=== PATIENT | male | born 1980 | race Caucasian/White ===

== ENCOUNTER 2017-11-30 07:42 | Emergency (ER) | payer MEDICAID ==
[~2017-11-30] VITALS: Ht 180.3 cm; Wt 110.0 kg
[~2017-11-30 07:42] MED LIST: ALPR2TAB2 PO; BUPR300T49 PO; MORP30TA81 PO; ZOLP10TA PO
[2017-11-30] MEDS ORDERED: SODIUM CHLORIDE FLUSH 10ML SYR IVF ONE (09:00)
[2017-11-30] MEDS ORDERED: SODIUM CHLORIDE 0.9% 1,000ML IVBOLUS ONE (09:00)
[2017-11-30] MEDS ORDERED: HYDROmorphone 1 MG/ML, 1ML IVPush PRN (09:00)
[2017-11-30] MEDS ORDERED: ONDANSETRON 2MG/ML, 2ML IVPush ONE (09:00)
[2017-11-30] MEDS ORDERED: KETOROLAC 30 MG/1 ML IVPush ONE (09:00)
[2017-11-30 09:12] LABS: BASOPHILS # (AUTO) 0.04 x10^3/uL (0-0.1); BASOPHILS % (AUTO) 1 % (0-1); EOSINOPHILS # (AUTO) 0.15 x10^3/uL (0-0.4); EOSINOPHILS % (AUTO) 2 % (1-7); LYMPHOCYTES # (AUTO) 1.83 x10^3/uL (1-3.4); LYMPHOCYTES % (AUTO) 29 % (22-44); MD NO; MEAN CORPUSCULAR HEMOGLOBIN 30.5 pg (27.5-34.5); MEAN CORPUSCULAR HGB CONC 34.2 g/dL (33.2-36.2); MEAN CORPUSCULAR VOLUME 89.2 fL (81-97); MEAN PLATELET VOLUME 9.4 fL (7.4-10.4); MONOCYTES # (AUTO) 0.45 x10^3/uL (0.2-0.8); MONOCYTES % (AUTO) 7 % (2-9); NEUTROPHILS # (AUTO) 3.95 x10^3/uL (1.8-6.8); NEUTROPHILS % (AUTO) 62 % (42-75); PLATELET COUNT 261 x10^3/uL (130-400); RED BLOOD COUNT 4.72 x10^6/uL (4.38-5.82); RED CELL DISTRIBUTION WIDTH 13.8 % (9.4-14.8)
[2017-11-30 09:20] LABS: ALBUMIN 3.9 g/dL (3.4-5.0); ANION GAP 6 mmol/L (5-15); CALCIUM 8.4 mg/dL (8.5-10.1); CHLORIDE 105 mmol/L (98-107); CREATININE 0.84 mg/dL (0.7-1.3)
[2017-11-30] MEDS ORDERED: ONDANSETRON 2MG/ML, 2ML ONE (09:33)
[2017-11-30] MEDS ORDERED: KETOROLAC 30 MG/1 ML ONE (09:33)
[2017-11-30] MEDS ORDERED: HYDROmorphone 1 MG/ML, 1ML ONE (09:34)
[2017-11-30 09:50] VITALS: BP 116/71
[2017-11-30 10:09] LABS: MICROSCOPIC NOT IND
== END 2017-11-30 11:05 | disposition home or self-care (01) ==
LOC: ED 10:25
DX: J01.11 Acute recurrent frontal sinusitis (principal); J01.01 Acute recurrent maxillary sinusitis
CPT/HCPCS: 36415; 80048; 81003; 82040; 85025; 96361; 96374; 96375; 99284; J1170; J1885; J2405; J7030

== ENCOUNTER 2017-12-24 16:09 | Emergency (ER) | payer MEDICAID ==
[~2017-12-24] VITALS: Ht 180.3 cm; Wt 102.6 kg
[2017-12-24] MEDS ORDERED: ONDANSETRON ODT 4 MG ONE ×2 (17:25→18:23)
[2017-12-24] MEDS ORDERED: ONDANSETRON ODT 4 MG PO ONE ×2 (17:30→18:30)
[2017-12-24 18:04] LABS: BASOPHILS # (AUTO) 0.06 x10^3/uL (0-0.1); BASOPHILS % (AUTO) 1 % (0-1); EOSINOPHILS # (AUTO) 0.14 x10^3/uL (0-0.4); EOSINOPHILS % (AUTO) 2 % (1-7); LYMPHOCYTES # (AUTO) 1.59 x10^3/uL (1-3.4); LYMPHOCYTES % (AUTO) 26 % (22-44); MD NO; MEAN CORPUSCULAR HGB CONC 34.4 g/dL (33.2-36.2); MEAN PLATELET VOLUME 9.7 fL (7.4-10.4); MONOCYTES # (AUTO) 0.47 x10^3/uL (0.2-0.8); MONOCYTES % (AUTO) 8 % (2-9); NEUTROPHILS # (AUTO) 3.85 x10^3/uL (1.8-6.8); NEUTROPHILS % (AUTO) 63 % (42-75); PLATELET COUNT 215 x10^3/uL (130-400); RED BLOOD COUNT 4.61 x10^6/uL (4.38-5.82)
[2017-12-24] MEDS ORDERED: MORP30TA3 PO (18:06)
[2017-12-24 18:15] LABS: ALANINE AMINOTRANSFERASE 42 U/L (12-78); ALBUMIN 3.6 g/dL (3.4-5.0); ANION GAP 5 mmol/L (5-15); CALCIUM 8.2 mg/dL (8.5-10.1); CHLORIDE 108 mmol/L (98-107)
[2017-12-24 18:17] LABS: ALKALINE PHOSPHATASE 90 U/L (45-117); BILIRUBIN,TOTAL 0.8 mg/dL (0.2-1.0); TOTAL PROTEIN 6.7 g/dL (6.4-8.2)
[2017-12-24 18:26] VITALS: BP 117/90
== END 2017-12-24 18:45 | disposition home or self-care (01) ==
LOC: ED 18:05
DX: R51 Headache (principal); R11.10 Vomiting, unspecified; J34.2 Deviated nasal septum; F43.10 Post-traumatic stress disorder, unspecified
CPT/HCPCS: 36415; 70450; 70486; 80053; 85025; 99285; Q0162

== ENCOUNTER 2018-02-12 18:16 | Observation (INO) | payer BC, MEDICAID ==
[~2018-02-12] VITALS: Ht 180.3 cm; Wt 100.3 kg
[~2018-02-12 18:16] MED LIST changes: +MORP30TA3 PO
[2018-02-12] MEDS ORDERED: METHOCARBAMOL 750 MG TABLET ONE (19:23)
[2018-02-12] MEDS ORDERED: KETOROLAC 30 MG/1 ML ONE (19:23)
[2018-02-12] MEDS ORDERED: METHOCARBAMOL 750 MG TABLET PO ONE (19:30)
[2018-02-12] MEDS ORDERED: KETOROLAC 30 MG/1 ML IVPush ONE (19:30)
[2018-02-12] MEDS ORDERED: KETAMINE 100 MG/ML, 5ML IV ONE ×2 (19:30→21:30)
[2018-02-12] MEDS ORDERED: ONDA4TAB10 PO (21:40)
[2018-02-12] MEDS ORDERED: ONDANSETRON 2MG/ML, 2ML IVPush PRN (22:00)
[2018-02-12] MEDS ORDERED: DOCUSATE 100 MG CAPSULE PO PRN (22:00)
[2018-02-12] MEDS ORDERED: ZOLPIDEM 10MG TABLET PO PRN (22:00)
[2018-02-12] MEDS ORDERED: POLYETHYLENE GLYCOL 17 GM PACKET PO PRN (22:00)
[2018-02-12] MEDS ORDERED: ACETAMINOPHEN 325 MG TABLET PO PRN (22:00)
[2018-02-12 22:28] VITALS: BP 132/79
[2018-02-12] MEDS: OXYcodone IR 5MG TABLET PO PRN (23:23)
[2018-02-13 00:48] VITALS: BP 122/83
[2018-02-13 06:49] VITALS: BP 104/65
[2018-02-13] MEDS: OXYcodone IR 5MG TABLET PO PRN (07:34)
[2018-02-13 07:39] LABS: ALANINE AMINOTRANSFERASE 40 U/L (12-78); ALBUMIN 3.5 g/dL (3.4-5.0); ANION GAP 6 mmol/L (5-15); CALCIUM 8.3 mg/dL (8.5-10.1); CHLORIDE 108 mmol/L (98-107); CREATININE 1.03 mg/dL (0.7-1.3)
[2018-02-13 07:41] LABS: ALKALINE PHOSPHATASE 82 U/L (45-117); BILIRUBIN,TOTAL 1.1 mg/dL (0.2-1.0); TOTAL PROTEIN 6.6 g/dL (6.4-8.2)
[2018-02-13] MEDS ORDERED: KETOROLAC 30 MG/1 ML IV SCH (09:00)
[2018-02-13] MEDS ORDERED: ALPRazolam 1MG TABLET PO SCH (09:00)
[2018-02-13] MEDS ORDERED: SODIUM CHLORIDE FLUSH 10ML SYR IVF SCH (09:00)
[2018-02-13] MEDS ORDERED: SENNA/DOCUSATE TABLET PO SCH (09:00)
[2018-02-13] MEDS ORDERED: MIDAZOLAM 1 MG/ML, 2ML ONE (09:58)
[2018-02-13] MEDS ORDERED: FENTANYL PF 100 MCG/2ML ONE ×2 (09:58→10:52)
[2018-02-13] MEDS ORDERED: PROPOFOL 10 MG/ML, 20ML ONE (10:48)
[2018-02-13] MEDS ORDERED: DEXAMETHASONE 4 MG/ML, 1ML ONE ×2 (10:49)
[2018-02-13] MEDS ORDERED: PROMETHAZINE 25 MG/ML, 1ML IV PRN (11:00)
[2018-02-13] MEDS ORDERED: MEPERIDINE/PF 25MG/0.5ML IVPush PRN (11:00)
[2018-02-13] MEDS ORDERED: LABETALOL 5MG/ML, 20ML IV PRN (11:00)
[2018-02-13] MEDS ORDERED: FENTANYL PF 100 MCG/2ML IV PRN (11:00)
[2018-02-13] MEDS ORDERED: hydrALAzine 20 MG/ML, 1ML IV PRN (11:00)
[2018-02-13] MEDS ORDERED: OXYcodone 5 MG/5 ML ORAL.SOL UDC PO PRN (11:00)
[2018-02-13] MEDS ORDERED: ONDANSETRON ODT 8 MG PO PRN (11:00)
[2018-02-13] MEDS ORDERED: DIAZEPAM 5 MG/ML, 2ML IVPush PRN (11:00)
[2018-02-13] MEDS ORDERED: MORPHINE SULFATE 4 MG/ML, 1ML IVPush PRN (11:00)
[2018-02-13] MEDS ORDERED: ACETAMINOPHEN 325 MG TABLET PO PRN (11:00)
[2018-02-13 14:31] VITALS: BP 100/62
== END 2018-02-13 16:09 | disposition home or self-care (01) ==
LOC: ED 20:10 → EDIP 21:30 → INTOOBSV 21:30 → 3NE 22:13
PROVIDERS: ADMIT Family Medicine; ATTEND Family Medicine
DX: M54.5 Low back pain (principal); G89.29 Other chronic pain; R53.1 Weakness; R29.6 Repeated falls; F11.90 Opioid use, unspecified, uncomplicated; F43.10 Post-traumatic stress disorder, unspecified; F41.9 Anxiety disorder, unspecified
CPT/HCPCS: 36415; 72131; 72148; 80053; 96374; 96375; 96376; 97162; 99285; G0378; G8978; G8979; G8980; J1100; J1885; J2250; J2704; J3010

== ENCOUNTER 2018-11-17 13:13 | Emergency (ER) | payer BC, MEDICAID ==
[~2018-11-17] VITALS: Ht 180.3 cm; Wt 99.6 kg
[~2018-11-17 13:13] MED LIST changes: +ONDA4TAB10 PO
--- NOTE | 2018-11-17 13:32 | NUR ---
pt ambulatory to ed room 33 from [facility]
[2018-11-17] MEDS ORDERED: ONDANSETRON 2MG/ML, 2ML IVPush ONE (14:00)
[2018-11-17] MEDS ORDERED: SODIUM CHLORIDE FLUSH 10ML SYR IVF ONE (14:00)
[2018-11-17] MEDS ORDERED: ONDANSETRON 2MG/ML, 2ML ONE (14:01)
[2018-11-17] MEDS ORDERED: MORPHINE SULFATE 4 MG/ML, 1ML ONE ×2 (14:02→15:28)
[2018-11-17 14:12] LABS: BASOPHILS # (AUTO) 0.03 x10^3/uL (0-0.1); BASOPHILS % (AUTO) 0 % (0-1); EOSINOPHILS # (AUTO) 0.03 x10^3/uL (0-0.4); EOSINOPHILS % (AUTO) 0 % (1-7); LYMPHOCYTES # (AUTO) 1.23 x10^3/uL (1-3.4); LYMPHOCYTES % (AUTO) 16 % (22-44); MD NO; MEAN CORPUSCULAR HEMOGLOBIN 31.6 pg (27.5-34.5); MEAN CORPUSCULAR HGB CONC 34.5 g/dL (33.2-36.2); MEAN CORPUSCULAR VOLUME 91.5 fL (81-97); MEAN PLATELET VOLUME 9.5 fL (7.4-10.4); MONOCYTES # (AUTO) 0.36 x10^3/uL (0.2-0.8); MONOCYTES % (AUTO) 5 % (2-9); NEUTROPHILS # (AUTO) 5.92 x10^3/uL (1.8-6.8); NEUTROPHILS % (AUTO) 78 % (42-75); PLATELET COUNT 275 x10^3/uL (130-400); RED BLOOD COUNT 4.82 x10^6/uL (4.38-5.82); RED CELL DISTRIBUTION WIDTH 13.6 % (9.4-14.8)
[2018-11-17] MEDS: MORPHINE SULFATE 4 MG/ML, 1ML IVPush PRN ×2 (14:14→15:31)
[2018-11-17 14:24] LABS: CHLORIDE 112 mmol/L (98-107)
[2018-11-17 14:29] LABS: ALANINE AMINOTRANSFERASE 30 U/L (12-78); ALBUMIN 4.2 g/dL (3.4-5.0); ALKALINE PHOSPHATASE 101 U/L (45-117); ANION GAP 7 mmol/L (5-15); BILIRUBIN,TOTAL 0.8 mg/dL (0.2-1.0); CREATININE 1.01 mg/dL (0.7-1.3); TOTAL PROTEIN 7.2 g/dL (6.4-8.2)
--- NOTE | 2018-11-17 14:51 | NUR ---
REPORT FROM NICO ONEAL. PT IN IMAGING AT THIS TIME.
--- NOTE | 2018-11-17 15:31 | NUR ---
SOILED LINENS CHANGED. URINAL IN PLACE BETWEEN PT'S LEGS TO CATCH UA. PT AMBULATED STEADILY TO BATHROOM WO ASSISTANCE TO "CLEAN UP". PT MEDICATED PER EMAR FOR CONTINUED PAIN.
--- NOTE | 2018-11-17 16:10 | NUR ---
PT REPORTS SLIGHT IMPROVEMENT IN PAIN. PT UPDATED TO POC (MRI) AND DEMONSTRATE UNDERSTANDING. SPO2 >90% ON RA; RR WNL. UA COLLECTED AND SENT TO LAB
[2018-11-17 16:25] LABS: MICROSCOPIC NOT IND
[2018-11-17 16:28] LABS: CULTURE INDICATED? NO
[2018-11-17] MEDS ORDERED: MIDAZOLAM 1 MG/ML, 2ML ONE (16:47)
[2018-11-17] MEDS ORDERED: FENTANYL PF 100 MCG/2ML ONE (16:47)
--- NOTE | 2018-11-17 16:49 | NUR ---
PT TO MRI
[2018-11-17] MEDS ORDERED: DEXAMETHASONE 4 MG/ML, 1ML ONE (17:00)
[2018-11-17] MEDS ORDERED: SUCCINYLCHOLINE 20 MG/ML, 10ML ONE (17:00)
[2018-11-17] MEDS ORDERED: PROPOFOL 10 MG/ML, 20ML ONE (17:00)
[2018-11-17] MEDS ORDERED: GADOBUTROL 10 MMOL/10 ML PFS ONE (17:27)
[2018-11-17] MEDS ORDERED: OXYcodone 5 MG/5 ML ORAL.SOL UDC PO PRN (18:00)
[2018-11-17] MEDS ORDERED: ONDANSETRON 2MG/ML, 2ML IV PRN (18:00)
[2018-11-17] MEDS ORDERED: MIDAZOLAM 1 MG/ML, 2ML IV PRN (18:00)
[2018-11-17] MEDS ORDERED: ACETAMINOPHEN 325 MG TABLET PO PRN (18:00)
[2018-11-17] MEDS ORDERED: OXYcodone 5 MG/5 ML ORAL.SOL UDC ONE (18:03)
[2018-11-17 18:28] VITALS: BP 120/80
--- NOTE | 2018-11-17 18:29 | NUR ---
PT RETURNED FROM MRI. NAD NOTED. AIRWAY PATENT. SPEECH CLEAR. PT AWAKE/ALERT/TALKATIVE. PT CO CONTINUED PAIN. ERP AWARE. AWAITING ORDERS.
--- NOTE | 2018-11-17 19:17 | NUR ---
NICO GONCALVES AT BEDSIDE TO DC IV. PT DRESSED AND AMBULATORY TO RESTROOM. AWAITING DC INSTRUCTIONS.
== END 2018-11-17 19:35 | disposition home or self-care (01) ==
LOC: ED 16:43
DX: S39.012A Strain of muscle, fascia and tendon of lower back, initial encounter (principal); G89.11 Acute pain due to trauma; F41.1 Generalized anxiety disorder; F43.10 Post-traumatic stress disorder, unspecified; W10.8XXA Fall (on) (from) other stairs and steps, initial encounter; Y93.89 Activity, other specified; Y92.89 Other specified places as the place of occurrence of the external cause; Y99.8 Other external cause status
CPT/HCPCS: 36415; 72110; 72158; 80053; 81003; 83690; 85025; 96374; 96375; 96376; 99284; A9585; J0330; J1100; J2250; J2405; J2704; J3010

== ENCOUNTER 2019-07-21 10:19 | Emergency (ER) | payer MEDICAID ==
[~2019-07-21] VITALS: Ht 180.3 cm; Wt 102.6 kg
[~2019-07-21 10:19] MED LIST changes: +AMOX1TAB12 PO; +CHLO473M MM; +DOXY100C2 PO; +GABA-826 PO; +LORA2TAB99 PO; +MORP-30 PO; -MORP30TA3 PO; +ONDA4TAB7 PO
[2019-07-21] MEDS ORDERED: ONDANSETRON 2MG/ML, 2ML ONE (10:56)
[2019-07-21] MEDS ORDERED: MORPHINE SULFATE 4 MG/ML, 1ML ONE (10:56)
[2019-07-21] MEDS ORDERED: SODIUM CHLORIDE FLUSH 10ML SYR IVF ONE (11:00)
[2019-07-21] MEDS ORDERED: ONDANSETRON 2MG/ML, 2ML IVPush ONE (11:00)
[2019-07-21] MEDS ORDERED: MORPHINE SULFATE 4 MG/ML, 1ML IVPush PRN (11:00)
[2019-07-21 11:26] LABS: BASOPHILS # (AUTO) 0.06 x10^3/uL (0-0.1); BASOPHILS % (AUTO) 1 % (0-1); EOSINOPHILS # (AUTO) 0.08 x10^3/uL (0-0.4); EOSINOPHILS % (AUTO) 1 % (1-7); LYMPHOCYTES # (AUTO) 1.55 x10^3/uL (1-3.4); LYMPHOCYTES % (AUTO) 25 % (22-44); MD NO; MEAN CORPUSCULAR HEMOGLOBIN 31.3 pg (27.5-34.5); MEAN CORPUSCULAR HGB CONC 33.6 g/dL (33.2-36.2); MEAN CORPUSCULAR VOLUME 93.2 fL (81-97); MEAN PLATELET VOLUME 8.4 fL (7.4-10.4); MONOCYTES # (AUTO) 0.48 x10^3/uL (0.2-0.8); MONOCYTES % (AUTO) 8 % (2-9); NEUTROPHILS # (AUTO) 4.17 x10^3/uL (1.8-6.8); NEUTROPHILS % (AUTO) 66 % (42-75); PLATELET COUNT 242 x10^3/uL (130-400); RED BLOOD COUNT 4.65 x10^6/uL (4.38-5.82); RED CELL DISTRIBUTION WIDTH 13.8 % (9.4-14.8)
[2019-07-21 11:30] LABS: INTERNATIONAL NORMALIZED RATIO 0.99 (0.93-1.1); PROTHROMBIN TIME 10.4 Seconds (9.6-11.5)
[2019-07-21] MEDS ORDERED: LORazepam 2 MG/ML, 1ML IVPush ONE (11:30)
[2019-07-21 11:32] LABS: ALBUMIN 3.8 g/dL (3.4-5.0); ANION GAP 4 mmol/L (5-15); CALCIUM 8.2 mg/dL (8.5-10.1); CHLORIDE 109 mmol/L (98-107)
[2019-07-21] MEDS ORDERED: LORazepam 2 MG/ML, 1ML ONE (11:34)
[2019-07-21 11:37] LABS: ALANINE AMINOTRANSFERASE 25 U/L (12-78); ALKALINE PHOSPHATASE 88 U/L (45-117); BILIRUBIN,TOTAL 1.1 mg/dL (0.2-1.0); CREATININE 0.98 mg/dL (0.7-1.3); TOTAL PROTEIN 6.9 g/dL (6.4-8.2)
--- NOTE | 2019-07-21 11:41 | NUR ---
PT PRESENT W FALL FROM TOP OF MOTOR HOME APPROX 14-15FT. PT STATES HE HIT BACK OF HEAD ON A TRAILER THEN FELL ON HIS BACK. PT STATES HE HAS BEEN INCONTINENT OF STOOL AND URINARY RETENTION SINCE FALL. CO OF PAIN ALL OVER. ALL SENSATION AND MOVEMENT INTACT IN UPPER AND LOWER EXTREMITIES. DENIES LOC. A&OX4, BLADDER SCAN >800
[2019-07-21 11:49] LABS: MICROSCOPIC AUTO
[2019-07-21 11:50] LABS: CULTURE INDICATED? NO
--- NOTE | 2019-07-21 12:00 | NUR ---
VU INSERT BY . DRAINED 1200. PT TOLERATED PROCEDURE
[2019-07-21] MEDS ORDERED: MIDAZOLAM 1 MG/ML, 2ML ONE (12:05)
[2019-07-21] MEDS ORDERED: ETOMIDATE 20 MG/10 ML ONE (12:21)
[2019-07-21] MEDS ORDERED: MIDAZOLAM 1 MG/ML, 2ML IVPush ONE (12:30)
--- NOTE | 2019-07-21 12:30 | NUR ---
PT HAVING ANXIETY ATTACK IN CT. MD ORDERED VERSED. RN ADMINISTERED PER ORDERS. NO EFFECT ON PT. MD NOTIFIED
[2019-07-21] MEDS ORDERED: PROPOFOL 10 MG/ML, 20ML ONE (12:43)
--- NOTE | 2019-07-21 13:16 | NUR ---
PT RECEIVED MONITORED SEDATION FOR CT SCAN. RN PULLED MEDS PER MD ORDER, ETOMIDATE AND PROPOFOL. MD ADMINISTERED MEDS. SECOND IV ESTABLISHED. 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 PT TOLERATED SEDATION WO COMPLICATIONS. VS STABLE. CT COMPLETE. PT TRANSFERRED BACK TO ROOM REQUESTING PAIN MEDS AND WANTING TO TALK TO THE
--- NOTE | 2019-07-21 14:00 | NUR ---
PT REQUESTING PAIN MEDS. MD AT BEDSIDE DISCUSSING RESULTS AND SUGGESTING TO BE ADMITTED TO HOSPITAL. PT AWARE THAT MD WILL NOT ORDER NARCOTIC MEDICATIONS.
[2019-07-21 14:15] VITALS: BP 130/85
[2019-07-21] MEDS ORDERED: OMNIPAQUE 350 MG/ML, 100ML BOTTLE ONE (14:28)
[2019-07-21] MEDS ORDERED: PROPOFOL 10 MG/ML, 20ML IVPush ONE (14:30)
[2019-07-21] MEDS ORDERED: ETOMIDATE 20 MG/10 ML IVPush ONE (14:30)
--- NOTE | 2019-07-21 14:30 | NUR ---
PT IS UPSET AND STATING "I AM IN PAIN" THOUGH, REFUSING MEDICATIONS AVAILABLE. PT STATES "I DO NOT KNOW IF I WANT TO BE ADMITTED OR NOT, I CANNOT MAKE A DECISION"
--- NOTE | 2019-07-21 14:35 | NUR ---
MD AT BEDSIDE DISCUSSING PLAN OF CARE OR OPTION TO AMA IF NOT WANTING TO BE ADMITTED. PT STILL UNDECIDED.
--- NOTE | 2019-07-21 14:49 | NUR ---
responded to a patient complain. Pt stated 'he needs anesthesia medications to control pain'. MD at bedside and explained risks related to his request and clarified his plan of care. pt stated 'i want to go against medical advice'. MD discussed risks related to his wishes to go against medical advice at length. patient verbalized understanding of leaving against medical advice. witnessed patient signing the AMA form. AMA form filed with chart.
--- NOTE | 2019-07-21 14:50 | NUR ---
PT DECIDED TO AMA. HILLMAN AT BEDSIDE. IV REMOVED. VU REMOVED. FUNERAL CAR DRIVER AT BEDSIDE. PT IS AMBULATING IN ROOM W OUT DIFFICULTY.
--- NOTE | 2019-07-21 14:54 | NUR ---
PT AMBULATED TO NE DESK W STEADY GAIT
== END 2019-07-21 14:56 | disposition left against medical advice (07) ==
LOC: ED 11:38 → UNDOADMIN 13:54 → EDIP 13:54 → ED 14:50
DX: M54.5 Low back pain (principal); M54.6 Pain in thoracic spine; R33.9 Retention of urine, unspecified; R51 Headache; M54.2 Cervicalgia; G89.29 Other chronic pain; W17.89XA Other fall from one level to another, initial encounter; Y93.89 Activity, other specified; Y92.89 Other specified places as the place of occurrence of the external cause; Y99.8 Other external cause status
CPT/HCPCS: 36415; 51702; 70450; 71260; 72125; 74177; 80053; 81001; 85025; 85610; 96374; 96375; 99285; J2060; J2250; J2270; J2405; J2704; Q9967

== ENCOUNTER 2019-10-17 03:11 | Emergency (ER) | payer MEDICAID, OTHER ==
[~2019-10-17] VITALS: Ht 180.3 cm; Wt 99.5 kg
--- NOTE | 2019-10-17 03:32 | NUR ---
Pt presents to room reporting sudden onset LBP while moving an appliance at work. Pt describes lumbar spinal pain that radiates to his thoracic spinal area as well as down to his left leg. Pt denies urinary incontinence with the pain. Pt reports no relief from Ibuprofen, steroids, and [place] at home.
[2019-10-17] MEDS ORDERED: ONDANSETRON ODT 8 MG ONE (04:19)
[2019-10-17] MEDS ORDERED: METHOCARBAMOL 750 MG TABLET ONE (04:20)
[2019-10-17] MEDS ORDERED: HYDROmorphone 1 MG/ML, 1ML INJ ONE (04:20)
[2019-10-17] MEDS ORDERED: HYDROmorphone 1 MG/ML, 1ML INJ IM ONE (04:30)
[2019-10-17] MEDS ORDERED: ONDANSETRON ODT 4 MG PO ONE (04:30)
[2019-10-17] MEDS ORDERED: HYDROmorphone 2 MG/ML, 1ML IVPush ONE (04:30)
[2019-10-17] MEDS ORDERED: METHOCARBAMOL 750 MG TABLET PO ONE (04:30)
--- NOTE | 2019-10-17 05:04 | NUR ---
Pt reports no significant chane in pain after meds. Pt states "they barely touched it".
[2019-10-17 06:21] VITALS: BP 126/81
== END 2019-10-17 06:24 | disposition home or self-care (01) ==
LOC: ED 03:37
DX: G89.29 Other chronic pain (principal); M54.5 Low back pain
CPT/HCPCS: 96372; 99283; J1170; Q0162

== ENCOUNTER 2019-12-19 22:47 | Inpatient (IN) | payer MEDICAID, OTHER ==
[~2019-12-19] VITALS: Ht 180.3 cm; Wt 100.0 kg
--- NOTE | 2019-12-19 22:52 | NUR ---
ATTEMPTED TO CALL PT FROM LOBBY TO TRIAGE. PT NIL X 1
[2019-12-19] MEDS ORDERED: ONDANSETRON 2MG/ML, 2ML ONE (23:29)
[2019-12-19] MEDS ORDERED: ONDANSETRON 2MG/ML, 2ML IVPush ONE (23:30)
[2019-12-19] MEDS ORDERED: MORPHINE SULFATE 4 MG/ML, 1ML ONE (23:30)
[2019-12-19] MEDS ORDERED: KETAMINE 10 MG/ML, 20ML IV ONE (23:30)
[2019-12-19] MEDS: MORPHINE SULFATE 4 MG/ML, 1ML IVPush PRN (23:33)
[2019-12-20] MEDS ORDERED: LORazepam 2 MG/ML, 1ML IVPush ONE
--- NOTE | 2019-12-20 00:04 | NUR ---
REPORT GIVEN TO JUSTIN WALSH
[2019-12-20] MEDS ORDERED: LORazepam 2 MG/ML, 1ML ONE (00:05)
[2019-12-20] MEDS ORDERED: KETAMINE 10 MG/ML, 20ML ONE ×2 (00:05→00:17)
--- NOTE | 2019-12-20 00:41 | NUR ---
REPORT FROM DIMITRI WALSH. PT MEDICATED BY DIMITRI. PT TO MRI WITH CELENA WALSH AND DR PAZ
[2019-12-20] MEDS: MORPHINE SULFATE 4 MG/ML, 1ML IVPush PRN (00:45)
--- NOTE | 2019-12-20 01:12 | NUR ---
BACK FROM MRI. PATIENT WAS GIVEN TOTAL OF 375 MG OF KETAMINE. PATIENT STILL MOVING EVEN WITH SEDATION.
[2019-12-20] MEDS ORDERED: KETAMINE 100 MG/ML, 5ML IV STA ×2 (01:15→01:16)
--- NOTE | 2019-12-20 01:15 | NUR ---
report to NICO Young
--- NOTE | 2019-12-20 02:19 | NUR ---
Break RN: ERP at bedside for re-evaluation.
--- NOTE | 2019-12-20 02:26 | NUR ---
patient for Admit. still c/o pain. no pain medication ordered.
--- NOTE | 2019-12-20 02:53 | NUR ---
REPORT OF PT TO NICO HEART ALL QUESTIONS ANSWERED. MED REC UP TO DATE. DR PICKETT IS AT BS WITH PT FOR HISTORY AND ASSESSMENT AND AWAITING TRANSPORT OF PT TO FLOOR WITH TECH AT THIS TIME.
[2019-12-20] MEDS ORDERED: ONDANSETRON 2MG/ML, 2ML ONE ×2 (02:56→10:37)
[2019-12-20] MEDS ORDERED: LORazepam 2 MG/ML, 1ML IVPush PRN (03:00)
[2019-12-20] MEDS ORDERED: ONDANSETRON 2MG/ML, 2ML IVPush ONE (03:00)
[2019-12-20] MEDS ORDERED: ONDANSETRON 2MG/ML, 2ML IVPush PRN (03:00)
[2019-12-20] MEDS ORDERED: HYDR-36 PO (03:32)
[2019-12-20] MEDS ORDERED: BUPR300T49 PO (03:32)
[2019-12-20] MEDS: ALPRazolam 1MG TAB PO PRN ×2 (04:03→13:40)
[2019-12-20] MEDS: ZOLPIDEM 5MG TABLET PO PRN (04:03)
[2019-12-20] MEDS: morphine SULFATE 10 MG/ML, 1ML IVPush PRN ×4 (04:03→23:56)
[2019-12-20 04:30] VITALS: BP 123/70
[2019-12-20 04:33] LABS: MICROSCOPIC NOT IND
[2019-12-20 04:43] LABS: CULTURE INDICATED? NO
[2019-12-20] MEDS: ACETAMINOPHEN 325 MG TABLET PO PRN ×2 (05:50→13:40)
[2019-12-20 06:32] VITALS: BP 126/90
[2019-12-20] MEDS: BUPROPION SR 150 MG TABLET PO SCH ×2 (09:00→21:00)
[2019-12-20] MEDS ORDERED: LIDOCAINE PF 2%, 5ML ONE (09:41)
[2019-12-20] MEDS ORDERED: PROPOFOL 10 MG/ML, 20ML ONE (09:41)
[2019-12-20] MEDS ORDERED: SUCCINYLCHOLINE 20 MG/ML, 10ML ONE (09:41)
[2019-12-20] MEDS ORDERED: ACETAMINOPHEN 325 MG TABLET PO PRN (10:30)
[2019-12-20] MEDS ORDERED: HYDROmorphone 2 MG/ML, 1ML IVPush PRN (10:30)
[2019-12-20] MEDS ORDERED: ONDANSETRON 2MG/ML, 2ML IV PRN (10:30)
[2019-12-20] MEDS ORDERED: OXYcodone 5 MG/5 ML ORAL.SOL UDC PO PRN (10:30)
[2019-12-20] MEDS ORDERED: MEPERIDINE/PF 25MG/ML,1ML IVPush PRN (10:30)
[2019-12-20] MEDS ORDERED: FENTANYL PF 100 MCG/2ML ONE (10:37)
[2019-12-20] MEDS: FENTANYL PF 100 MCG/2ML IV PRN ×2 (10:43→10:53)
[2019-12-20 12:57] VITALS: BP 126/79
[2019-12-20 20:47] VITALS: BP 137/88
[2019-12-20] MEDS: CYCLOBENZAPRINE 10 MG TABLET PO SCH (21:52)
[2019-12-20] MEDS: OXYcodone/APAP 5/325MG TABLET PO PRN (21:53)
[2019-12-21] MEDS: ZOLPIDEM 5MG TABLET PO PRN (00:25)
[2019-12-21] MEDS: ACETAMINOPHEN 325 MG TABLET PO PRN (00:25)
[2019-12-21] MEDS: ALPRazolam 1MG TAB PO PRN (00:25)
[2019-12-21 00:41] VITALS: BP 148/82
[2019-12-21 04:00] VITALS: BP 147/98
[2019-12-21 05:43] LABS: BASOPHILS # (AUTO) 0.03 x10^3/uL (0-0.1); BASOPHILS % (AUTO) 0 % (0-1); EOSINOPHILS # (AUTO) 0.15 x10^3/uL (0-0.4); EOSINOPHILS % (AUTO) 2 % (1-7); LYMPHOCYTES # (AUTO) 1.69 x10^3/uL (1-3.4); LYMPHOCYTES % (AUTO) 22 % (22-44); MD NO; MEAN CORPUSCULAR HEMOGLOBIN 31.7 pg (27.5-34.5); MEAN CORPUSCULAR HGB CONC 33.4 g/dL (33.2-36.2); MONOCYTES # (AUTO) 0.67 x10^3/uL (0.2-0.8); MONOCYTES % (AUTO) 9 % (2-9); NEUTROPHILS # (AUTO) 5.02 x10^3/uL (1.8-6.8); NEUTROPHILS % (AUTO) 66 % (42-75); PLATELET COUNT 246 x10^3/uL (130-400); RED BLOOD COUNT 4.49 x10^6/uL (4.38-5.82); RED CELL DISTRIBUTION WIDTH 13.8 % (9.4-14.8)
[2019-12-21 05:58] LABS: ANION GAP 6 mmol/L (5-15); CALCIUM 8.6 mg/dL (8.5-10.1); CHLORIDE 107 mmol/L (98-107); CREATININE 1.32 mg/dL (0.7-1.3)
[2019-12-21] MEDS: OXYcodone/APAP 5/325MG TABLET PO PRN ×2 (06:14→11:05)
[2019-12-21 07:56] VITALS: BP 145/92
[2019-12-21] MEDS: CYCLOBENZAPRINE 10 MG TABLET PO SCH (08:35)
[2019-12-21] MEDS: BUPROPION SR 150 MG TABLET PO SCH (08:35)
[2019-12-21] MEDS: morphine SULFATE 10 MG/ML, 1ML IVPush PRN ×2 (08:36→12:19)
[2019-12-21] MEDS ORDERED: ONDA4TAB7 PO (09:22)
[2019-12-21] MEDS ORDERED: LIDO1ADH73 TD (09:22)
[2019-12-21] MEDS ORDERED: CYCL-259 PO (09:22)
[2019-12-21] MEDS ORDERED: OXYC-307 PO (09:57)
[2019-12-21 13:23] VITALS: BP 142/97
== END 2019-12-21 14:04 | disposition home or self-care (01) | DRG 347 ==
LOC: ED 12-20 00:01 → EDIP 12-20 02:45 → 4NE 12-20 03:05
PROVIDERS: ADMIT Internal Medicine; ATTEND Internal Medicine
DX: M54.5 Low back pain (principal); F41.1 Generalized anxiety disorder; F43.10 Post-traumatic stress disorder, unspecified; G89.29 Other chronic pain; Z90.49 Acquired absence of other specified parts of digestive tract; Z79.899 Other long term (current) drug therapy
CPT/HCPCS: 36415; 72148; 80048; 81003; 83735; 84100; 85025; 96374; 96375; 96376; 99152; G0378; J2405; J2704; J3010; J0330; J2060; J2270

== ENCOUNTER 2020-01-14 18:14 | Emergency (ER) | payer MEDICAID ==
[~2020-01-14] VITALS: Ht 180.3 cm; Wt 103.0 kg
[~2020-01-14 18:14] MED LIST changes: +CYCL-259 PO; +HYDR-36 PO; +LIDO1ADH73 TD; +OXYC-307 PO
--- NOTE | 2020-01-14 18:19 | NUR ---
PT CALLED TO TRIAGE X1, IN RR.
[2020-01-14] MEDS ORDERED: HYDROmorphone 1 MG/ML, 1ML INJ IM PRN (19:30)
--- NOTE | 2020-01-14 19:38 | NUR ---
PT NOT IN LOBBY
[2020-01-14] MEDS ORDERED: ONDANSETRON ODT 4 MG PO ONE (20:00)
[2020-01-14] MEDS ORDERED: HYDROmorphone 1 MG/ML, 1ML INJ ONE (20:19)
[2020-01-14] MEDS ORDERED: ONDANSETRON ODT 4 MG ONE (20:19)
--- NOTE | 2020-01-14 20:27 | NUR ---
Assumed care of patient. Patient sustained LBP at work 2 months ago and has had frequent falls ever since. Yesterday, he fell down the stairs and has had bilat buttock numbness and has lost control of his bowel and bladder since then. C/O LBP pain. Zofran ODT and IM Dilaudid admin per provider order. Placed on NIBP and pulse ox. Will continue to monitor.
[2020-01-14] MEDS ORDERED: ACETAMINOPHEN 500 MG TABLET PO ONE (21:00)
[2020-01-14] MEDS ORDERED: LIDODERM 5% PATCH TD ONE ×2 (21:00→21:48)
[2020-01-14] MEDS ORDERED: DIAZEPAM 5 MG/ML, 2ML IV ONE (21:00)
[2020-01-14] MEDS ORDERED: ACETAMINOPHEN 500 MG TABLET ONE (21:48)
[2020-01-14] MEDS ORDERED: DIAZEPAM 5 MG TABLET ONE (21:48)
--- NOTE | 2020-01-14 21:55 | NUR ---
Continues to have C/O pain. Tylenol, lido patch and valium PO admin.
[2020-01-14] MEDS ORDERED: DIAZEPAM 5 MG TABLET PO ONE (22:00)
--- NOTE | 2020-01-14 22:07 | NUR ---
ATTEMPTED TO AMBULATE PT PER ORDER. PT WAS HESISTANT TO WALK AT FIRST. STATED "I REALLY DON'T WANT TO DO THIS." PT GIVEN SOCKS AND WAS ABLE TO WALK, ONLY TO THE DOOR AND BACK. PT STATED HE WAS IN PAIN THE WHOLE TIME AND LIKE HIS LEG WAS "GOING TO GIVE OUT."
[2020-01-14 22:31] VITALS: BP 138/102
== END 2020-01-14 22:34 | disposition home or self-care (01) ==
LOC: ED 20:28
DX: S39.012A Strain of muscle, fascia and tendon of lower back, initial encounter (principal); G89.29 Other chronic pain; M54.6 Pain in thoracic spine; W10.9XXA Fall (on) (from) unspecified stairs and steps, initial encounter; Y93.89 Activity, other specified; Y92.89 Other specified places as the place of occurrence of the external cause; Y99.8 Other external cause status
CPT/HCPCS: 72072; 72110; 96372; 99284; J1170; Q0162

== ENCOUNTER 2020-03-07 23:31 | Emergency (ER) | payer MEDICAID ==
[~2020-03-07] VITALS: Ht 180.3 cm; Wt 100.0 kg
[~2020-03-07 23:31] MED LIST changes: +HYDR-3246 PO; -HYDR-36 PO
--- NOTE | 2020-03-08 04:48 | NUR ---
PT HERE FOR BACK AND LEFT LEG PAIN. PT HAS BEEN SEEN HERE MULTIPLE TIMES FOR SAME. VSS. PT AMBULATED TO ROOM WITH A STEADY GAIT. PA AT BEDSIDE
[2020-03-08] MEDS ORDERED: ONDANSETRON ODT 4 MG PO ONE (05:00)
[2020-03-08] MEDS ORDERED: HYDROmorphone 1 MG/ML, 1ML INJ IM ONE (05:00)
[2020-03-08] MEDS ORDERED: METHOCARBAMOL 750 MG TABLET PO ONE (05:00)
[2020-03-08] MEDS ORDERED: METHOCARBAMOL 750 MG TABLET ONE (05:06)
[2020-03-08] MEDS ORDERED: ONDANSETRON ODT 4 MG ONE (05:06)
[2020-03-08] MEDS ORDERED: HYDROmorphone 1 MG/ML, 1ML INJ ONE (05:06)
--- NOTE | 2020-03-08 05:18 | NUR ---
PT MEDICATE FOR PAIN. PT DISSAPPOINTED THAT HE IS NOT GETTING ADMITTED FOR AN MRI. VSS. CALL LIGHT IN REACH
[2020-03-08 06:00] VITALS: BP 115/72
--- NOTE | 2020-03-08 06:22 | NUR ---
Patient given discharge instructions and they have confirmed that they understand the instructions. Patient ambulatory with steady gait.
== END 2020-03-08 06:24 | disposition home or self-care (01) ==
LOC: ED 03-08 05:20
DX: S39.012A Strain of muscle, fascia and tendon of lower back, initial encounter (principal); G89.29 Other chronic pain; X58.XXXA Exposure to other specified factors, initial encounter; Y93.89 Activity, other specified; Y92.89 Other specified places as the place of occurrence of the external cause; Y99.8 Other external cause status
CPT/HCPCS: 72072; 72110; 96372; 99284; J1170; J7512; Q0162

== ENCOUNTER 2020-03-09 14:44 | Emergency (ER) | payer MEDICAID ==
[~2020-03-09] VITALS: Ht 180.3 cm; Wt 101.3 kg
[2020-03-09 14:47] VITALS: BP 134/83
[2020-03-09] MEDS ORDERED: SODIUM CHLORIDE FLUSH 10ML SYR IVF ONE (15:00)
[2020-03-09 15:12] LABS: BASOPHILS # (AUTO) 0.04 x10^3/uL (0-0.1); BASOPHILS % (AUTO) 1 % (0-1); EOSINOPHILS # (AUTO) 0.09 x10^3/uL (0-0.4); EOSINOPHILS % (AUTO) 1 % (1-7); LYMPHOCYTES # (AUTO) 1.56 x10^3/uL (1-3.4); LYMPHOCYTES % (AUTO) 19 % (22-44); MD NO; MEAN CORPUSCULAR HEMOGLOBIN 32.2 pg (27.5-34.5); MEAN CORPUSCULAR HGB CONC 33.9 g/dL (33.2-36.2); MEAN CORPUSCULAR VOLUME 94.8 fL (81-97); MEAN PLATELET VOLUME 8.9 fL (7.4-10.4); MONOCYTES # (AUTO) 0.43 x10^3/uL (0.2-0.8); MONOCYTES % (AUTO) 5 % (2-9); NEUTROPHILS # (AUTO) 6.22 x10^3/uL (1.8-6.8); NEUTROPHILS % (AUTO) 75 % (42-75); PLATELET COUNT 273 x10^3/uL (130-400); RED BLOOD COUNT 4.72 x10^6/uL (4.38-5.82); RED CELL DISTRIBUTION WIDTH 14.3 % (9.4-14.8)
[2020-03-09 15:23] LABS: ALBUMIN 3.9 g/dL (3.4-5.0); ANION GAP 8 mmol/L (5-15); CALCIUM 8.3 mg/dL (8.5-10.1); CHLORIDE 112 mmol/L (98-107); CREATININE 1.14 mg/dL (0.7-1.3)
--- NOTE | 2020-03-09 16:13 | NUR ---
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
--- NOTE | 2020-03-09 16:55 | NUR ---
PT INCONTINENT OF URINE, THIS RN FEELS IT WAS INTENTIONAL. PT UP IN DOORWAY, DRESSED PER SELF, AMBULATING INDEPENDENTLY WITH STEADY GAIT. STATES THAT HE DOES NOT WANT TO WAIT TO BE SEEN BY THE DOCTOR. PT EDUCATED ON REFERRAL FOR MRI WITH ANESTHESIA, PT VERBAL STATES "I DON'T CARE. I'M NOT STAYING." PT THEN AMBULATED OUT OF THE DEPARTMENT WITHOUT ANY ASSISTANCE OR DEVICE USE. GAIT STRONG, STEADY, AND INDEPENDENT. ERP NOTIFIED.
== END 2020-03-09 16:58 | disposition left against medical advice (07) ==
LOC: ED 16:50
DX: M54.5 Low back pain (principal); G89.29 Other chronic pain; R53.1 Weakness; R15.9 Full incontinence of feces
CPT/HCPCS: 36415; 80048; 82040; 85025; 99283

== ENCOUNTER 2020-06-30 03:34 | Emergency (ER) | payer MEDICAID ==
[~2020-06-30] VITALS: Ht 180.3 cm; Wt 105.9 kg
--- NOTE | 2020-06-30 04:46 | NUR ---
PA at bedside
[2020-06-30] MEDS ORDERED: SODIUM CHLORIDE FLUSH 10ML SYR IVF ONE (05:00)
[2020-06-30] MEDS ORDERED: HYDROmorphone 2 MG/ML, 1ML IVPush PRN (05:00)
--- NOTE | 2020-06-30 05:25 | NUR ---
Alert, answering questions appropriately. States he was moving furniture Tuesday when he strained his back. Increased pain in lower back radiating down lower extremities bilaterally with associated numbness/tingling bilaterally. Pt states last night he was incontinent of urine and stool and "it has been leaking out a lot since from both ways." Denies c-spine/t-spine tenderness. PA at bedside for john
[2020-06-30] MEDS ORDERED: HYDROmorphone 1 MG/ML, 1ML INJ ONE ×2 (05:32→08:29)
[2020-06-30 06:12] LABS: BASOPHILS % (AUTO) 1 % (0-1); EOSINOPHILS % (AUTO) 2 % (1-7); LYMPHOCYTES % (AUTO) 21 % (22-44); MEAN CORPUSCULAR HEMOGLOBIN 31.8 pg (27.5-34.5); MEAN CORPUSCULAR HGB CONC 34.1 g/dL (33.2-36.2); MEAN PLATELET VOLUME 8.7 fL (7.4-10.4); MONOCYTES % (AUTO) 8 % (2-9); NEUTROPHILS % (AUTO) 69 % (42-75); PLATELET COUNT 246 x10^3/uL (130-400); RED BLOOD COUNT 4.73 x10^6/uL (4.38-5.82); RED CELL DISTRIBUTION WIDTH 14.2 % (9.4-14.8)
[2020-06-30 06:20] LABS: MD NO
--- NOTE | 2020-06-30 06:20 | NUR ---
Pt expressing significant concerns r/t MRI. States hx of PTSD r/t claustrophobia. States he would like to discuss POC with provider, provider aware
[2020-06-30 06:22] LABS: ANION GAP 3 mmol/L (5-15); CALCIUM 8.3 mg/dL (8.5-10.1); CHLORIDE 109 mmol/L (98-107)
[2020-06-30 06:22] LABS: MICROSCOPIC NOT IND
[2020-06-30 06:26] LABS: ALANINE AMINOTRANSFERASE 30 U/L (12-78); ALKALINE PHOSPHATASE 77 U/L (45-117); BILIRUBIN,TOTAL 1.2 mg/dL (0.2-1.0); CREATININE 1.09 mg/dL (0.7-1.3); TOTAL PROTEIN 7.1 g/dL (6.4-8.2)
--- NOTE | 2020-06-30 08:02 | NUR ---
BEDDING CHANGE FOLLOWING INCONTINENCE. NAD NOTED AT THIS TIME. SIDE RAILS UP, CALL LIGHT IN REACH.
[2020-06-30] MEDS ORDERED: ONDANSETRON 2MG/ML, 2ML ONE ×2 (08:29→11:15)
[2020-06-30] MEDS ORDERED: ONDANSETRON 2MG/ML, 2ML IVPush ONE (08:30)
[2020-06-30] MEDS ORDERED: HYDROmorphone 1 MG/ML, 1ML INJ IV ONE (08:30)
--- NOTE | 2020-06-30 08:44 | NUR ---
PT LAYING BACK IN BED WATCHING IPAD. PLEASANT WITH RN. MARIANN NOTED, PAIN REDUCED FOLLOWING MED ADMINISTRATION. AWAITING MRI.
--- NOTE | 2020-06-30 08:52 | NUR ---
ICE PACK GIVEN PER PT REQUEST.
--- NOTE | 2020-06-30 10:02 | NUR ---
RAPID SWAB COMPLETED PER MRI RN REQUEST.
--- NOTE | 2020-06-30 10:14 | NUR ---
task RN note: phone call taken from MRI RN who states that rapid covid test is needed for MRI with anesthesia. rapid covid test performed, sample walked to lab. pt informed of POC. TIRSO Nuno notified, MRI to be delayed until rapid covid results negative.
--- NOTE | 2020-06-30 11:11 | NUR ---
PT IN MRI AT THIS TIME.
[2020-06-30] MEDS ORDERED: DEXAMETHASONE 4 MG/ML, 1ML ONE (11:15)
[2020-06-30] MEDS ORDERED: PROPOFOL 10 MG/ML, 20ML ONE (11:15)
[2020-06-30] MEDS ORDERED: LABETALOL 5MG/ML, 20ML IV PRN (11:30)
[2020-06-30] MEDS ORDERED: hydrALAzine 20 MG/ML, 1ML IV PRN (11:30)
[2020-06-30] MEDS ORDERED: FENTANYL PF 100 MCG/2ML IV PRN (11:30)
[2020-06-30] MEDS ORDERED: EPHEDRINE 50 MG/ML, 1ML IVPush PRN (11:30)
[2020-06-30] MEDS ORDERED: ONDANSETRON 2MG/ML, 2ML IVPush PRN (11:30)
[2020-06-30] MEDS ORDERED: ACETAMINOPHEN 325 MG TABLET PO PRN (11:30)
--- NOTE | 2020-06-30 12:19 | NUR ---
REPORT FROM PACU, PT TO BE TRANSFERRED BACK TO ED IN 10-15 MINUTES.
[2020-06-30 12:57] VITALS: BP 134/84
== END 2020-06-30 12:59 | disposition home or self-care (01) ==
LOC: ED 06:00
DX: G89.29 Other chronic pain (principal); M54.5 Low back pain; Z20.828 Contact with and (suspected) exposure to other viral communicable diseases; M79.605 Pain in left leg; R53.1 Weakness; Z90.49 Acquired absence of other specified parts of digestive tract
CPT/HCPCS: 36415; 72148; 80053; 81003; 85025; 87635; 96374; 96375; 96376; 99284; J1100; J1170; J2405; J2704; J7512

== ENCOUNTER 2020-07-28 01:43 | Emergency (ER) | payer MEDICAID ==
[~2020-07-28] VITALS: Ht 180.3 cm; Wt 106.6 kg
[2020-07-28 01:48] VITALS: BP 155/112
[2020-07-28] MEDS ORDERED: ONDANSETRON ODT 4 MG ONE (02:08)
[2020-07-28] MEDS ORDERED: HYDROcodone/APAP 5/325 TABLET ONE (02:09)
--- NOTE | 2020-07-28 02:13 | NUR ---
PT PRESENTS TO THE ER FOR PAIN R/T HERNIA THAT HE WAS DIAGNOSED WITH BY HIS PCP ON TUESDAY. PT STATES THAT HE HAS CALLED FOR OUTPATIENT SX BUT DOES NOT HAVE AN APPOINTMENT AT THIS TIME. PT INQUIRED IF HE COULD BE ADMITTED AND BE SEEN HERE BY A SURGEON IN THE MORNING. PT EDUCATED BY THAT THE HERNIA DOES NOT REQUIRE EMERGENCY SURGERY. PT UPDATED ON POC. PT SITTING IN BED ON PHONE, RIAN.
[2020-07-28] MEDS ORDERED: HYDROcodone/APAP 5/325 TABLET PO ONE (02:30)
[2020-07-28] MEDS ORDERED: ONDANSETRON ODT 4 MG PO ONE (02:30)
== END 2020-07-28 02:48 | disposition left against medical advice (07) ==
LOC: ED 02:00
DX: K42.9 Umbilical hernia without obstruction or gangrene (principal); R11.2 Nausea with vomiting, unspecified; Z90.49 Acquired absence of other specified parts of digestive tract
CPT/HCPCS: 99283; Q0162

== ENCOUNTER 2020-12-10 03:38 | Emergency (ER) | payer MEDICAID ==
[~2020-12-10] VITALS: Ht 180.3 cm; Wt 102.0 kg
[~2020-12-10 03:38] MED LIST changes: -CYCL-259 PO; +CYCL10TA2 PO; -HYDR-3246 PO; +HYDR-3248 PO; -OXYC-307 PO; +OXYC-380 PO
--- NOTE | 2020-12-10 04:04 | NUR ---
PT STATES "CHEST PAIN STARTED AROUND 0200 NAUSEA/ VOMITED 2x + /CHILLS. PAIN IN CHEST 8/10 PRESSURE AND A COUGH". "HAS TAKEN 2 NITROS WITHIN FIVE MINUTES PRIOR TO COMING TO HOSPITAL THAT DID RELIEVE SOME CHEST PAIN." STATES HEADACHE 06/21 THAT STARTED 24 HOURS AGO. STATES "A DOCTROR SAID HE HAD A HEART ATTACK A ENID AGO. HAS PUT HIM ON HEART MEDICATIONS LISINOPRIL, AMOLODAPINE."
[2020-12-10 04:26] LABS: BASOPHILS % (AUTO) 1 % (0-1); EOSINOPHILS % (AUTO) 1 % (1-7); LYMPHOCYTES % (AUTO) 12 % (22-44); MEAN CORPUSCULAR HEMOGLOBIN 31.6 pg (27.5-34.5); MEAN CORPUSCULAR HGB CONC 34.9 g/dL (33.2-36.2); MEAN PLATELET VOLUME 9.3 fL (7.4-10.4); MONOCYTES % (AUTO) 7 % (2-9); NEUTROPHILS % (AUTO) 79 % (42-75); PLATELET COUNT 325 x10^3/uL (130-400); RED BLOOD COUNT 5.09 x10^6/uL (4.38-5.82); RED CELL DISTRIBUTION WIDTH 13.6 % (9.4-14.8)
[2020-12-10] MEDS ORDERED: ASPIRIN 81 MG TABLET CHEW ONE (04:27)
[2020-12-10] MEDS ORDERED: ASPIRIN 81 MG TABLET CHEW PO ONE (04:30)
[2020-12-10 04:33] LABS: MD NO
[2020-12-10 04:38] LABS: ALBUMIN 4.8 g/dL (3.4-5.0); ANION GAP 7 mmol/L (5-15); CALCIUM 9.6 mg/dL (8.5-10.1); CHLORIDE 108 mmol/L (98-107); CREATININE 1.38 mg/dL (0.7-1.3)
[2020-12-10 04:41] LABS: TROPONIN I < 0.015 ng/mL (0.000-0.045)
[2020-12-10] MEDS ORDERED: MORPHINE SULFATE 4 MG/ML, 1ML IVPush ONE (05:00)
[2020-12-10] MEDS ORDERED: ONDANSETRON 2MG/ML, 2ML IVPush ONE (05:00)
[2020-12-10] MEDS ORDERED: ONDANSETRON 2MG/ML, 2ML ONE (05:01)
[2020-12-10] MEDS ORDERED: MORPHINE SULFATE 4 MG/ML, 1ML ONE (05:02)
[2020-12-10 05:39] VITALS: BP 149/87
== END 2020-12-10 06:00 | disposition home or self-care (01) ==
LOC: ED 05:45
DX: F13.129 Sedative, hypnotic or anxiolytic abuse with intoxication, unspecified (principal); F19.129 Other psychoactive substance abuse with intoxication, unspecified; F41.1 Generalized anxiety disorder; R07.89 Other chest pain; R06.02 Shortness of breath; R05 Cough; R51.9 Headache, unspecified; R00.0 Tachycardia, unspecified
CPT/HCPCS: 36415; 71045; 80048; 82040; 84484; 85025; 93005; 96374; 96375; 99285; J2270; J2405

== ENCOUNTER 2021-01-13 12:54 | Emergency (ER) | payer MEDICAID ==
[~2021-01-13] VITALS: Ht 180.3 cm; Wt 101.4 kg
[2021-01-13 13:49] LABS: BASOPHILS % (AUTO) 1 % (0-1); EOSINOPHILS % (AUTO) 1 % (1-7); LYMPHOCYTES % (AUTO) 18 % (22-44); MEAN CORPUSCULAR HGB CONC 34.9 g/dL (33.2-36.2); MEAN PLATELET VOLUME 8.7 fL (7.4-10.4); MONOCYTES % (AUTO) 5 % (2-9); NEUTROPHILS % (AUTO) 76 % (42-75); PLATELET COUNT 312 x10^3/uL (130-400); RED BLOOD COUNT 4.84 x10^6/uL (4.38-5.82); RED CELL DISTRIBUTION WIDTH 14.6 % (9.4-14.8)
[2021-01-13 13:51] LABS: ALBUMIN 4.4 g/dL (3.4-5.0); ANION GAP 6 mmol/L (5-15); CHLORIDE 111 mmol/L (98-107)
[2021-01-13 13:52] LABS: MD NO
[2021-01-13 14:00] LABS: ALANINE AMINOTRANSFERASE 43 U/L (12-78); ALKALINE PHOSPHATASE 109 U/L (45-117); BILIRUBIN,TOTAL 0.9 mg/dL (0.2-1.0); CREATININE 1.22 mg/dL (0.7-1.3); TOTAL PROTEIN 7.5 g/dL (6.4-8.2)
--- NOTE | 2021-01-13 14:09 | NUR ---
dish maker: pt from lobby to room 21
--- NOTE | 2021-01-13 14:30 | NUR ---
ERP AT BS NOW. PT STATES HE ALREADY VOIDED BUT HE WILL TRY TO GO AGAIN TO PROVIDE SAMPLE. PT STATES ABD PAIN HAS BEEN SEVERE PAST COUPLE DAYS. HAD CT DONE AT [facility] YESTERDAY. PER PT, HE "DOES NOT HAVE A GOOD RELATIONSHIP" WITH THE SURGEON WHO DID HIS HERNIA REPAIR.
[2021-01-13] MEDS ORDERED: ONDANSETRON 2MG/ML, 2ML ONE (14:43)
[2021-01-13] MEDS ORDERED: MORPHINE SULFATE 4 MG/ML, 1ML ONE ×2 (14:43→16:42)
[2021-01-13] MEDS ORDERED: ONDANSETRON 2MG/ML, 2ML IVPush ONE (15:00)
[2021-01-13] MEDS ORDERED: MORPHINE SULFATE 4 MG/ML, 1ML IVPush ONE ×2 (15:00→17:00)
--- NOTE | 2021-01-13 15:05 | NUR ---
REPORTED TO JANAE WALSH.
[2021-01-13 15:45] LABS: MICROSCOPIC INDICATED
[2021-01-13 17:53] VITALS: BP 112/80
--- NOTE | 2021-01-13 17:55 | NUR ---
PT REC'VD DISCHARGE INSTRUCTIONS AND EDUCATION. PT HAD NO FURTHER QUESTIONS. PT AMBULATED TO DC AREA, STEADY GAIT.
== END 2021-01-13 18:12 | disposition home or self-care (01) ==
LOC: ED 18:00
DX: R10.33 Periumbilical pain (principal); R11.2 Nausea with vomiting, unspecified
CPT/HCPCS: 36415; 80053; 81001; 83690; 85025; 87086; 96374; 96375; 96376; 99284; J2270; J2405

== ENCOUNTER 2021-01-24 10:01 | Emergency (ER) | payer MEDICAID ==
[~2021-01-24] VITALS: Ht 180.3 cm; Wt 102.3 kg
[2021-01-24] MEDS ORDERED: ONDANSETRON 2MG/ML, 2ML IVPush ONE (10:30)
[2021-01-24] MEDS ORDERED: HYDROmorphone 1 MG/ML, 1ML INJ IV ONE (10:30)
[2021-01-24] MEDS ORDERED: SODIUM CHLORIDE FLUSH 10ML SYR IVF ONE (10:30)
[2021-01-24 10:50] LABS: BASOPHILS % (AUTO) 1 % (0-1); EOSINOPHILS % (AUTO) 1 % (1-7); LYMPHOCYTES % (AUTO) 19 % (22-44); MEAN CORPUSCULAR HEMOGLOBIN 31.7 pg (27.5-34.5); MEAN CORPUSCULAR HGB CONC 34.1 g/dL (33.2-36.2); MEAN PLATELET VOLUME 8.6 fL (7.4-10.4); MONOCYTES % (AUTO) 6 % (2-9); NEUTROPHILS % (AUTO) 73 % (42-75); PLATELET COUNT 256 x10^3/uL (130-400); RED CELL DISTRIBUTION WIDTH 14.9 % (9.4-14.8)
[2021-01-24] MEDS ORDERED: ONDANSETRON 2MG/ML, 2ML ONE (10:55)
[2021-01-24] MEDS ORDERED: HYDROmorphone 1 MG/ML, 1ML INJ ONE (10:55)
[2021-01-24 10:58] LABS: MD NO
[2021-01-24 11:00] LABS: ALANINE AMINOTRANSFERASE 40 U/L (12-78); ALBUMIN 4.3 g/dL (3.4-5.0); ANION GAP 4 mmol/L (5-15); CALCIUM 8.8 mg/dL (8.5-10.1); CHLORIDE 110 mmol/L (98-107)
[2021-01-24 11:02] LABS: ALKALINE PHOSPHATASE 84 U/L (45-117); TOTAL PROTEIN 7.4 g/dL (6.4-8.2)
--- NOTE | 2021-01-24 11:20 | NUR ---
Pt found on his knees at foot of the bed holding onto the mattress and crying stating he is in a lot of pain. Pt able to get up unassisted, denies having fallen, and small amount of uop noted in urinal on prasad stand for UA. IV started, IV meds given, and CT to come back once IV completed. Socks provided for warm and slip resistance while in hospital per pt request. Warm blanket provided and call light in reach.
[2021-01-24] MEDS ORDERED: OMNIPAQUE 350 MG/ML, 100ML BOTTLE ONE (11:49)
[2021-01-24 11:52] LABS: MICROSCOPIC INDICATED
--- NOTE | 2021-01-24 12:10 | NUR ---
Pt states pain has decreased to 3/10 after medical van driver on reassessment, and nausea has resolved after medical van driver.
--- NOTE | 2021-01-24 12:30 | NUR ---
Pt asking if pain meds can be waiting for the 2 hour celso since last admin "incase he starts hurting really bad earlier than expected." Pt education on pain medication orders and process in ED provided with stated understanding of these. Pt aware of waiting for CT to be read by radiologist before MD will come back to speak with him.
[2021-01-24] MEDS ORDERED: AMLO-150 PO (12:38)
[2021-01-24] MEDS ORDERED: LISI-170 PO (12:38)
[2021-01-24 13:35] VITALS: BP 133/79
== END 2021-01-24 13:37 | disposition home or self-care (01) ==
LOC: ED 12:16
DX: R10.33 Periumbilical pain (principal); R11.2 Nausea with vomiting, unspecified; R19.7 Diarrhea, unspecified; G89.29 Other chronic pain; Z90.89 Acquired absence of other organs; Z90.49 Acquired absence of other specified parts of digestive tract
CPT/HCPCS: 36415; 74177; 80053; 81001; 83690; 85025; 96374; 96375; 99285; J1170; J2405; Q9967

== ENCOUNTER 2021-01-27 16:08 | Emergency (ER) | payer MEDICAID ==
[~2021-01-27] VITALS: Ht 177.8 cm; Wt 104.2 kg
[~2021-01-27 16:08] MED LIST changes: +AMLO-150 PO; +LISI-170 PO
[2021-01-27 16:46] LABS: MEAN CORPUSCULAR HEMOGLOBIN 31.9 pg (27.5-34.5); MEAN CORPUSCULAR HGB CONC 34.7 g/dL (33.2-36.2); MEAN PLATELET VOLUME 8.6 fL (7.4-10.4); PLATELET COUNT 254 x10^3/uL (130-400); RED BLOOD COUNT 4.72 x10^6/uL (4.38-5.82); RED CELL DISTRIBUTION WIDTH 15.4 % (9.4-14.8)
[2021-01-27 16:48] LABS: MD YES
[2021-01-27 16:57] LABS: ALBUMIN 4.5 g/dL (3.4-5.0); ANION GAP 5 mmol/L (5-15); CALCIUM 8.9 mg/dL (8.5-10.1); CHLORIDE 109 mmol/L (98-107)
[2021-01-27 16:59] LABS: ALANINE AMINOTRANSFERASE 37 U/L (12-78); ALKALINE PHOSPHATASE 90 U/L (45-117); BILIRUBIN,TOTAL 1.1 mg/dL (0.2-1.0); CREATININE 1.02 mg/dL (0.7-1.3); TOTAL PROTEIN 7.5 g/dL (6.4-8.2)
[2021-01-27 17:10] LABS: EOS#(MANUAL) 0.13 x10^3/uL (0.0-0.4); EOS% (MANUAL) 2 % (1-7); LYMPH#(MANUAL) 1.68 x10^3/uL (1-3.4); LYMPHS% (MANUAL) 25 % (22-44); MONOS% (MANUAL) 3 % (2-9); SEG#(MANUAL) 4.69 x10^3/uL (1.8-6.8); SEGS% (MANUAL) 70 % (42-75)
[2021-01-27 17:11] LABS: <PLATELET ESTIMATE> ADEQUATE; ANISOCYTOSIS 1+; GIANT PLATELETS 1+; POLYCHROMASIA 1+
[2021-01-27] MEDS ORDERED: ONDANSETRON 2MG/ML, 2ML ONE (20:36)
[2021-01-27] MEDS ORDERED: MORPHINE SULFATE 4 MG/ML, 1ML ONE (20:36)
--- NOTE | 2021-01-27 20:51 | NUR ---
PT CAME IN CO ABD PAIN. "I HAVE A HERNIA AND I WAS HERE TUESDAY AND I WAS SUPPOSED TO FOLLOW UP BUT THE PAIN HAS BEEN TOO MUCH". PT RESTING IN [facility]. MEDICATED PER NOV. LABS DRAWN
[2021-01-27] MEDS ORDERED: ONDANSETRON 2MG/ML, 2ML IVPush ONE (21:00)
[2021-01-27] MEDS ORDERED: SODIUM CHLORIDE 0.9% 1,000ML IVBOLUS ONE (21:00)
[2021-01-27] MEDS ORDERED: SODIUM CHLORIDE FLUSH 10ML SYR IVF ONE (21:00)
[2021-01-27] MEDS ORDERED: MORPHINE SULFATE 4 MG/ML, 1ML IVPush PRN (21:00)
[2021-01-27 21:26] LABS: MICROSCOPIC INDICATED
[2021-01-27 21:30] VITALS: BP 135/93
[2021-01-27] MEDS ORDERED: HYDROmorphone 1 MG/ML, 1ML INJ ONE (21:56)
[2021-01-27] MEDS ORDERED: HYDROmorphone 1 MG/ML, 1ML INJ IV ONE (22:00)
--- NOTE | 2021-01-27 22:03 | NUR ---
REPORT FROM MARGARETH, TRANSFER OF CARE AT THIS TIME.
--- NOTE | 2021-01-27 23:08 | NUR ---
Patient/Caregiver given discharge instructions and they have confirmed that they understand the instructions. Patient ambulatory with steady gait.
== END 2021-01-27 23:10 | disposition home or self-care (01) ==
LOC: ED 19:11
DX: R10.33 Periumbilical pain (principal); R11.2 Nausea with vomiting, unspecified; G89.29 Other chronic pain; Z90.49 Acquired absence of other specified parts of digestive tract; Z90.89 Acquired absence of other organs
CPT/HCPCS: 36415; 80053; 81001; 83690; 85025; 96361; 96374; 96375; 99284; J1170; J2270; J2405; J7030

== ENCOUNTER 2021-02-01 02:40 | Emergency (ER) | payer MEDICAID ==
[~2021-02-01] VITALS: Ht 180.3 cm; Wt 102.0 kg
[2021-02-01 02:48] VITALS: BP 119/86
--- NOTE | 2021-02-01 03:04 | NUR ---
ERP TO BEDSIDE FOR EVAL AND POC
[2021-02-01] MEDS ORDERED: ONDANSETRON ODT 4 MG ONE (03:12)
--- NOTE | 2021-02-01 03:24 | NUR ---
pt laying in bed, a/ox4, all needs in reach, call light in reach, pt says, "christina had this pain med before and it doesnt work."
[2021-02-01 03:28] LABS: BASOPHILS % (AUTO) 1 % (0-1); EOSINOPHILS % (AUTO) 1 % (1-7); LYMPHOCYTES % (AUTO) 22 % (22-44); MD NO; MEAN CORPUSCULAR HEMOGLOBIN 32.6 pg (27.5-34.5); MEAN CORPUSCULAR HGB CONC 35.6 g/dL (33.2-36.2); MEAN PLATELET VOLUME 8.7 fL (7.4-10.4); MONOCYTES % (AUTO) 9 % (2-9); NEUTROPHILS % (AUTO) 66 % (42-75); PLATELET COUNT 253 x10^3/uL (130-400); RED BLOOD COUNT 4.66 x10^6/uL (4.38-5.82); RED CELL DISTRIBUTION WIDTH 15.6 % (9.4-14.8)
--- NOTE | 2021-02-01 03:28 | NUR ---
pt states that he feels MD is not taking him seriously, this RN stated that we are running blood work, and urine and doing studies and that everything is being done that is appropriate for pt, pt stated he would like to be admitted for a surgical consult, this RN stated that is not a call that this RN could make
[2021-02-01 03:30] LABS: MICROSCOPIC NOT IND
[2021-02-01] MEDS ORDERED: ONDANSETRON ODT 8 MG PO ONE (03:30)
[2021-02-01 03:40] LABS: ALANINE AMINOTRANSFERASE 36 U/L (12-78); ALBUMIN 4.4 g/dL (3.4-5.0); ANION GAP 6 mmol/L (5-15); CALCIUM 8.7 mg/dL (8.5-10.1); CHLORIDE 110 mmol/L (98-107)
[2021-02-01 03:43] LABS: ALKALINE PHOSPHATASE 95 U/L (45-117); TOTAL PROTEIN 7.4 g/dL (6.4-8.2)
--- NOTE | 2021-02-01 03:43 | NUR ---
pt stated he, "has a very hinky feeling about the doctor", this RN stated that MD ordered labs and diagnostics and we have to wait for the results in order to see whats going on, pt stated doctor made him feel uncomfortable for some reason, this RN asked pt to stay for treatment but pt stated he would rather just go home
== END 2021-02-01 03:49 | disposition left against medical advice (07) ==
LOC: ED 03:15
DX: R10.84 Generalized abdominal pain (principal); R11.2 Nausea with vomiting, unspecified; Z90.49 Acquired absence of other specified parts of digestive tract
CPT/HCPCS: 36415; 80053; 81003; 83690; 85025; 99283; Q0162

== ENCOUNTER 2021-02-03 14:14 | Emergency (ER) | payer MEDICAID ==
[~2021-02-03] VITALS: Ht 180.3 cm; Wt 103.0 kg
[2021-02-03 15:52] LABS: BASOPHILS % (AUTO) 1 % (0-1); EOSINOPHILS % (AUTO) 1 % (1-7); LYMPHOCYTES % (AUTO) 20 % (22-44); MEAN CORPUSCULAR HEMOGLOBIN 32.2 pg (27.5-34.5); MEAN CORPUSCULAR HGB CONC 35.2 g/dL (33.2-36.2); MEAN PLATELET VOLUME 9.4 fL (7.4-10.4); MONOCYTES % (AUTO) 6 % (2-9); NEUTROPHILS % (AUTO) 73 % (42-75); PLATELET COUNT 283 x10^3/uL (130-400); RED CELL DISTRIBUTION WIDTH 15.7 % (9.4-14.8)
[2021-02-03 15:55] LABS: MD NO
[2021-02-03 16:08] LABS: CHLORIDE 110 mmol/L (98-107)
[2021-02-03 16:14] LABS: ALANINE AMINOTRANSFERASE 45 U/L (12-78); ALBUMIN 4.4 g/dL (3.4-5.0); ALKALINE PHOSPHATASE 96 U/L (45-117); ANION GAP 7 mmol/L (5-15); CALCIUM 9.1 mg/dL (8.5-10.1); CREATININE 1.12 mg/dL (0.7-1.3); TOTAL PROTEIN 7.5 g/dL (6.4-8.2)
--- NOTE | 2021-02-03 16:33 | NUR ---
"I'VE BEEN HERE A COUPLE OF TIMES. I HAVE HORRIBLE ABD PAIN. (N/V/D) I HAVE HAD SURGERY ON IT BEFORE. SINCE I'M HAVING AN MRI UNDER GENERAL ANESTHESIA TOMORROW, I WAS THINKING IF WE CAN GET THE PAIN UNDER CONTROL AND HAVE THE MRI. " PT WITH STEADY GAIT TO ROOM. POSTIONED TO COMFORT. ATTACHED TO MONITORS. VSS. NADN. AWAITING ORDERS.
[2021-02-03 16:49] LABS: MICROSCOPIC NOT IND
[2021-02-03] MEDS ORDERED: HYDROmorphone 2 MG/ML, 1ML IM ONE (18:00)
[2021-02-03] MEDS ORDERED: ONDANSETRON ODT 8 MG PO ONE (18:00)
[2021-02-03] MEDS ORDERED: ONDANSETRON ODT 8 MG ONE (18:00)
[2021-02-03] MEDS ORDERED: HYDROmorphone 2 MG/ML, 1ML ONE (18:00)
[2021-02-03 18:18] VITALS: BP 150/103
--- NOTE | 2021-02-03 18:19 | NUR ---
pt medicated per emar. vss. aubreyn.
--- NOTE | 2021-02-03 18:34 | NUR ---
Patient given discharge instructions and they have confirmed that they understand the instructions. Patient ambulatory with steady gait. Patient states he has safe ride home.
== END 2021-02-03 18:35 | disposition home or self-care (01) ==
LOC: ED 15:58
DX: R10.84 Generalized abdominal pain (principal); R11.2 Nausea with vomiting, unspecified; R19.7 Diarrhea, unspecified
CPT/HCPCS: 36415; 80053; 81003; 83690; 85025; 96372; 99283; J1170; Q0162

== ENCOUNTER 2021-02-04 10:02 | Day surgery (SDC) | payer MEDICAID ==
[~2021-02-04] VITALS: Ht 180.3 cm; Wt 104.4 kg
[2021-02-04 11:04] VITALS: BP 121/83
[2021-02-04] MEDS ORDERED: CHLORHEXIDINE 15 ML UDC ONE (11:26)
[2021-02-04] MEDS ORDERED: DIAZEPAM 5 MG TABLET ONE (11:26)
[2021-02-04] MEDS ORDERED: DIAZEPAM 5 MG TABLET PO ONE (11:30)
[2021-02-04] MEDS ORDERED: CHLORHEXIDINE 15 ML UDC PO ONE (11:30)
[2021-02-04] MEDS ORDERED: LACTATED RINGERS 1,000 ML IV SCH (11:30)
[2021-02-04] MEDS ORDERED: MIDAZOLAM 1 MG/ML, 5ML ONE (11:55)
[2021-02-04] MEDS ORDERED: SUCCINYLCHOLINE 20 MG/ML, 10ML ONE (12:01)
[2021-02-04] MEDS ORDERED: FENTANYL PF 100 MCG/2ML ONE (12:01)
[2021-02-04] MEDS ORDERED: PROPOFOL 10 MG/ML, 20ML ONE (12:01)
[2021-02-04] MEDS ORDERED: OXYcodone 5 MG/5 ML ORAL.SOL UDC ONE (13:53)
[2021-02-04] MEDS ORDERED: HYDROmorphone 1 MG/ML, 1ML INJ IV PRN (14:00)
[2021-02-04] MEDS ORDERED: KETOROLAC 30 MG/1 ML IV PRN (14:00)
[2021-02-04] MEDS ORDERED: LABETALOL 5MG/ML, 20ML IV PRN (14:00)
[2021-02-04] MEDS ORDERED: hydrALAzine 20 MG/ML, 1ML IV PRN (14:00)
[2021-02-04] MEDS ORDERED: ALBUTEROL SULFATE 2.5 MG/3 ML NPPB PRN (14:00)
[2021-02-04] MEDS ORDERED: FENTANYL PF 100 MCG/2ML IV PRN (14:00)
[2021-02-04] MEDS ORDERED: MEPERIDINE/PF 25MG/0.5ML IVPush PRN (14:00)
[2021-02-04] MEDS ORDERED: DIAZEPAM 5 MG/ML, 2ML IV PRN ×2 (14:00)
[2021-02-04] MEDS ORDERED: OXYcodone 5 MG/5 ML ORAL.SOL UDC PO PRN (14:00)
[2021-02-04] MEDS ORDERED: ONDANSETRON 2MG/ML, 2ML IVPush PRN (14:00)
== END 2021-02-04 15:45 | disposition home or self-care (01) ==
LOC: OUT 10:02
PROVIDERS: ATTEND Neurological Surgery
DX: M54.5 Low back pain (principal); M54.2 Cervicalgia; M48.02 Spinal stenosis, cervical region; I10 Essential (primary) hypertension; F43.10 Post-traumatic stress disorder, unspecified; F32.9 Major depressive disorder, single episode, unspecified; K21.9 Gastro-esophageal reflux disease without esophagitis; Z20.822 Contact with and (suspected) exposure to COVID-19; Z79.891 Long term (current) use of opiate analgesic; Z79.899 Other long term (current) drug therapy; Z88.0 Allergy status to penicillin; Z88.8 Allergy status to other drugs, medicaments and biological substances; Z98.890 Other specified postprocedural states; Z80.42 Family history of malignant neoplasm of prostate
CPT/HCPCS: 72141; 72146; 72148; 87635; J0330; J2250; J2704; J3010; J7120

== ENCOUNTER 2021-02-08 15:53 | Emergency (ER) | payer MEDICAID ==
[~2021-02-08] VITALS: Ht 180.3 cm; Wt 102.2 kg
--- NOTE | 2021-02-08 17:01 | NUR ---
Pt to room now.
--- NOTE | 2021-02-08 17:08 | NUR ---
MD Connolly to bedside for eval.
[2021-02-08] MEDS ORDERED: ONDANSETRON ODT 4 MG PO ONE (17:30)
[2021-02-08] MEDS ORDERED: MAALOX/HYOSCYAMINE/LIDOCAINE 45 ML BTL PO ONE (17:30)
[2021-02-08 17:47] VITALS: BP 96/61
--- NOTE | 2021-02-08 17:47 | NUR ---
Pt on iPad, RIAN. Pt educated about medication orders, refusing at this time. Pt states "they gave me a GI cocktail before and it made me sick, and I have Zofran at home." Pt educated that Zofran is his best option considering meds and that he reported phenergan didn't work. Pt educated that if [place] isn't working a GI cocktail might. Pt still refusing meds at this time. made aware.
[2021-02-08 17:48] LABS: BASOPHILS % (AUTO) 1 % (0-1); EOSINOPHILS % (AUTO) 1 % (1-7); LYMPHOCYTES % (AUTO) 21 % (22-44); MEAN CORPUSCULAR HEMOGLOBIN 32.7 pg (27.5-34.5); MEAN PLATELET VOLUME 9.2 fL (7.4-10.4); MONOCYTES % (AUTO) 6 % (2-9); NEUTROPHILS % (AUTO) 71 % (42-75); PLATELET COUNT 272 x10^3/uL (130-400); RED CELL DISTRIBUTION WIDTH 15.4 % (9.4-14.8)
[2021-02-08 17:50] LABS: ALANINE AMINOTRANSFERASE 37 U/L (12-78); ALBUMIN 4.1 g/dL (3.4-5.0); ANION GAP 8 mmol/L (5-15); CALCIUM 8.6 mg/dL (8.5-10.1); CHLORIDE 113 mmol/L (98-107); CREATININE 1.15 mg/dL (0.7-1.3)
[2021-02-08 17:52] LABS: ALKALINE PHOSPHATASE 86 U/L (45-117); BILIRUBIN,TOTAL 0.9 mg/dL (0.2-1.0); MD NO; TOTAL PROTEIN 7.3 g/dL (6.4-8.2)
--- NOTE | 2021-02-08 18:00 | NUR ---
MD Connolly back to bedside.
--- NOTE | 2021-02-08 18:07 | NUR ---
Pt left without d/c papers.
== END 2021-02-08 18:08 | disposition home or self-care (01) ==
LOC: ED 17:15
DX: G89.29 Other chronic pain (principal); R10.13 Epigastric pain; R10.84 Generalized abdominal pain; R11.2 Nausea with vomiting, unspecified; Z90.49 Acquired absence of other specified parts of digestive tract
CPT/HCPCS: 36415; 80053; 83605; 83690; 85025; 99283

== ENCOUNTER 2021-05-03 17:06 | Emergency (ER) | payer MEDICAID ==
[~2021-05-03] VITALS: Ht 180.3 cm; Wt 100.6 kg
[2021-05-03 17:21] VITALS: BP 110/75
--- NOTE | 2021-05-03 17:42 | NUR ---
c-collar put on, pt in triage room 1
--- NOTE | 2021-05-03 17:44 | NUR ---
PT TO ROOM AT THIS TIME
--- NOTE | 2021-05-03 18:35 | NUR ---
PT TO CT
--- NOTE | 2021-05-03 18:52 | NUR ---
REPORT FROM AGUSTÍN WALSH
--- NOTE | 2021-05-03 18:58 | NUR ---
Pt eloped after being seen by MD Brito, pt left without DC papers.
== END 2021-05-03 19:00 | disposition left against medical advice (07) ==
LOC: ED 18:00
DX: G89.29 Other chronic pain (principal); M54.5 Low back pain
CPT/HCPCS: 72131; 99284

== ENCOUNTER 2021-05-03 23:58 | Emergency (ER) | payer MEDICAID ==
[~2021-05-03] VITALS: Ht 180.3 cm; Wt 92.5 kg
[2021-05-04] VITALS: BP 156/96
--- NOTE | 2021-05-04 00:35 | NUR ---
Patient given discharge instructions and they have confirmed that they understand the instructions. Patient ambulatory with steady gait. NAD, all questions answered appropriately, denies additional needs at this time. No personal belongings left in room after discharge.
== END 2021-05-04 00:37 | disposition home or self-care (01) ==
LOC: ED 05-04
DX: S39.012A Strain of muscle, fascia and tendon of lower back, initial encounter (principal); Z90.49 Acquired absence of other specified parts of digestive tract; W10.9XXA Fall (on) (from) unspecified stairs and steps, initial encounter; Y93.89 Activity, other specified; Y92.89 Other specified places as the place of occurrence of the external cause; Y99.8 Other external cause status
CPT/HCPCS: 99283

== ENCOUNTER 2021-05-05 17:35 | Inpatient (IN) | payer MEDICAID ==
[~2021-05-05] VITALS: Ht 180.3 cm; Wt 105.4 kg
[~2021-05-05 17:35] MED LIST changes: -DOXY100C2 PO; +DOXY100C5 PO; -OXYC-380 PO; +OXYC-501 PO
--- NOTE | 2021-05-05 20:20 | NUR ---
PT PRESENTS TO THE ER FOR FOR HAVING A FALL, PT STATES HE FELT A PAIN IN HIS RIGHT LEG AND GROIN AND HAD A FALL, PT DENIES HITTING HIS HEAD, PT STATES HE FELL ON TUESDAY PT WENT TO [facility] THEN CAME TO [facility] AND WAS DISCHARGED, PT PRESENTS FOR SAME COMPLAINTS BEFORE, MD AT BEDSIDE TO DISCUSS POC
--- NOTE | 2021-05-05 20:26 | NUR ---
MD AT BEDSIDE TO DISCUSS POC, MD TO DO RECTAL EXAM WITH THIS RN A FEATHERER
[2021-05-05] MEDS ORDERED: METHOCARBAMOL 750 MG TABLET PO ONE (21:00)
[2021-05-05] MEDS ORDERED: SODIUM CHLORIDE FLUSH 10ML SYR IVF ONE (21:00)
[2021-05-05 21:34] LABS: BASOPHILS % (AUTO) 1 % (0-1); EOSINOPHILS % (AUTO) 1 % (1-7); LYMPHOCYTES % (AUTO) 21 % (22-44); MEAN CORPUSCULAR HEMOGLOBIN 31.3 pg (27.5-34.5); MEAN CORPUSCULAR HGB CONC 34.1 g/dL (33.2-36.2); MEAN PLATELET VOLUME 8.6 fL (7.4-10.4); MONOCYTES % (AUTO) 8 % (2-9); NEUTROPHILS % (AUTO) 70 % (42-75); PLATELET COUNT 285 x10^3/uL (130-400); RED BLOOD COUNT 4.74 x10^6/uL (4.38-5.82); RED CELL DISTRIBUTION WIDTH 13.9 % (9.4-14.8)
[2021-05-05] MEDS ORDERED: METHOCARBAMOL 750 MG TABLET ONE (21:36)
[2021-05-05 21:41] LABS: ANION GAP 6 mmol/L (5-15); CALCIUM 8.7 mg/dL (8.5-10.1); CHLORIDE 108 mmol/L (98-107); CREATININE 1.02 mg/dL (0.7-1.3)
[2021-05-05] MEDS ORDERED: METHOCARBAMOL 500 MG TABLET PO PRN (22:30)
[2021-05-05] MEDS ORDERED: DEXAMETHASONE 4 MG/ML, 1ML IVPush ONE (22:30)
[2021-05-06 00:57] VITALS: BP 155/102
[2021-05-06] MEDS: ZOLPIDEM 10MG TABLET PO PRN (02:18)
[2021-05-06 02:43] VITALS: BP 153/93
[2021-05-06 06:47] LABS: BASOPHILS % (AUTO) 0 % (0-1); EOSINOPHILS % (AUTO) 0 % (1-7); LYMPHOCYTES % (AUTO) 5 % (22-44); MEAN CORPUSCULAR HGB CONC 35.1 g/dL (33.2-36.2); MEAN PLATELET VOLUME 9.6 fL (7.4-10.4); MONOCYTES % (AUTO) 1 % (2-9); NEUTROPHILS % (AUTO) 94 % (42-75); PLATELET COUNT 299 x10^3/uL (130-400); RED BLOOD COUNT 4.93 x10^6/uL (4.38-5.82); RED CELL DISTRIBUTION WIDTH 13.9 % (9.4-14.8)
[2021-05-06 06:54] LABS: ANION GAP 6 mmol/L (5-15); CHLORIDE 108 mmol/L (98-107); CREATININE 1.06 mg/dL (0.7-1.3)
[2021-05-06 07:17] VITALS: BP 151/104
[2021-05-06] MEDS ORDERED: BISACODYL 10 MG SUPP PR PRN (08:00)
[2021-05-06] MEDS ORDERED: ONDANSETRON 2MG/ML, 2ML IVPush PRN ×2 (08:00→16:30)
[2021-05-06] MEDS ORDERED: morphine SULFATE 10 MG/ML, 1ML IVPush PRN (08:00)
[2021-05-06] MEDS ORDERED: ONDANSETRON 4 MG TABLET PO PRN (08:00)
[2021-05-06] MEDS ORDERED: SENNA/DOCUSATE TABLET PO PRN (08:00)
[2021-05-06] MEDS: LISINOPRIL 20 MG TABLET PO SCH (08:05)
[2021-05-06] MEDS: AMLODIPINE 10 MG TAB PO SCH (08:05)
[2021-05-06] MEDS: DEXAMETHASONE 4 MG/ML, 1ML PO SCH ×3 (08:06→22:14)
[2021-05-06] MEDS ORDERED: BUPROPION HCL 300 MG HOMEMEDPO SCH (09:00)
[2021-05-06] MEDS: OXYcodone IR 5MG TABLET PO PRN ×3 (10:29→23:45)
[2021-05-06] MEDS: ALPRazolam 1MG TAB PO PRN (10:30)
[2021-05-06] MEDS: LIDODERM 5% PATCH TD PRN ×2 (10:31→23:45)
[2021-05-06] MEDS: BUPROPION SR 150 MG TABLET PO SCH ×2 (10:38→13:00)
[2021-05-06] MEDS ORDERED: METHOCARBAMOL 750 MG TABLET PO PRN (12:30)
[2021-05-06] MEDS ORDERED: ALPRazolam 1MG TAB PO PRN (12:30)
[2021-05-06] MEDS ORDERED: FENTANYL PF 100 MCG/2ML ONE ×2 (12:46→15:40)
[2021-05-06] MEDS ORDERED: MIDAZOLAM 1 MG/ML, 2ML ONE (12:46)
[2021-05-06] MEDS ORDERED: ROCURONIUM 10MG/ML,5ML ONE (12:48)
[2021-05-06 12:53] VITALS: BP 124/84
[2021-05-06] MEDS ORDERED: GADOTERATE 10 MMOL/20ML SYR ONE (14:19)
[2021-05-06] MEDS ORDERED: PROPOFOL 10 MG/ML, 20ML ONE (15:59)
[2021-05-06] MEDS ORDERED: ONDANSETRON 2MG/ML, 2ML ONE (15:59)
[2021-05-06] MEDS ORDERED: DEXAMETHASONE 4 MG/ML, 1ML ONE (15:59)
[2021-05-06] MEDS ORDERED: EPHEDRINE 50 MG/ML, 1ML ONE (15:59)
[2021-05-06] MEDS ORDERED: LORazepam 2 MG/ML, 1ML IVPush PRN (16:30)
[2021-05-06] MEDS ORDERED: PROMETHAZINE 12.5 MG SUPP PR PRN (16:30)
[2021-05-06] MEDS ORDERED: ACETAMINOPHEN 325 MG TABLET PO PRN (16:30)
[2021-05-06] MEDS ORDERED: DIAZEPAM 5 MG/ML, 2ML IVPush PRN (16:30)
[2021-05-06] MEDS ORDERED: MEPERIDINE/PF 25MG/0.5ML IVPush PRN (16:30)
[2021-05-06] MEDS ORDERED: EPHEDRINE 50 MG/ML, 1ML IVPush PRN (16:30)
[2021-05-06] MEDS ORDERED: hydrALAzine 20 MG/ML, 1ML IV PRN (16:30)
[2021-05-06] MEDS ORDERED: FENTANYL PF 100 MCG/2ML IV PRN (16:30)
[2021-05-06] MEDS ORDERED: PROMETHAZINE 25 MG/ML, 1ML IVPush PRN (16:30)
[2021-05-06] MEDS ORDERED: HYDROmorphone 1 MG/ML, 1ML INJ IVPush PRN (16:30)
[2021-05-06] MEDS ORDERED: MIDAZOLAM 1 MG/ML, 2ML IV PRN (16:30)
[2021-05-06] MEDS ORDERED: OXYcodone 5 MG/5 ML ORAL.SOL UDC PO PRN (16:30)
[2021-05-06] MEDS ORDERED: DIPHENHYDRAMINE 50 MG/ML, 1ML IVPush PRN ×2 (16:30)
[2021-05-06] MEDS ORDERED: ALBUTEROL SULFATE 2.5 MG/3 ML NPPB PRN (16:30)
[2021-05-06] MEDS ORDERED: LABETALOL 5MG/ML, 20ML IV PRN (16:30)
[2021-05-06] MEDS: morphine SULFATE 10 MG/ML, 1ML IVPush PRN ×2 (17:56→22:14)
[2021-05-06 20:54] VITALS: BP 103/65
[2021-05-06] MEDS ORDERED: BUPROPION SR 150 MG TABLET PO SCH (21:00)
[2021-05-07] VITALS: BP 133/71
[2021-05-07] MEDS: morphine SULFATE 10 MG/ML, 1ML IVPush PRN ×6 (01:16→23:50)
[2021-05-07] MEDS: ZOLPIDEM 10MG TABLET PO PRN (01:58)
[2021-05-07] MEDS: ALPRazolam 1MG TAB PO PRN ×2 (01:58→14:03)
[2021-05-07] MEDS: DEXAMETHASONE 4 MG/ML, 1ML PO SCH ×4 (04:42→20:35)
[2021-05-07] MEDS ORDERED: DIPHENHYDRAMINE 25 MG CAPSULE ONE (05:08)
[2021-05-07] MEDS: DIPHENHYDRAMINE 25 MG CAPSULE PO PRN ×2 (05:11→14:04)
[2021-05-07] MEDS: OXYcodone IR 5MG TABLET PO PRN ×4 (05:54→21:51)
[2021-05-07 06:05] LABS: HCT (SEDRATE) 39.9 % (39.2-51.8)
[2021-05-07 06:08] LABS: BASOPHILS % (AUTO) 0 % (0-1); EOSINOPHILS % (AUTO) 0 % (1-7); LYMPHOCYTES % (AUTO) 4 % (22-44); MEAN CORPUSCULAR HEMOGLOBIN 31.5 pg (27.5-34.5); MEAN CORPUSCULAR HGB CONC 34.3 g/dL (33.2-36.2); MEAN PLATELET VOLUME 9.2 fL (7.4-10.4); MONOCYTES % (AUTO) 5 % (2-9); NEUTROPHILS % (AUTO) 92 % (42-75); PLATELET COUNT 290 x10^3/uL (130-400); RED BLOOD COUNT 4.32 x10^6/uL (4.38-5.82)
[2021-05-07 06:22] LABS: CALCIUM 8.5 mg/dL (8.5-10.1); CHLORIDE 108 mmol/L (98-107)
[2021-05-07 06:24] LABS: ANION GAP 9 mmol/L (5-15); C-REACTIVE PROTEIN, QUANT 0.31 mg/dL (0.02-0.49); CREATININE 1.28 mg/dL (0.7-1.3)
[2021-05-07 06:48] VITALS: BP 129/79
[2021-05-07] MEDS ORDERED: DEXAMETHASONE 4 MG/ML, 5ML ONE (07:48)
[2021-05-07] MEDS: AMLODIPINE 10 MG TAB PO SCH (08:03)
[2021-05-07] MEDS: BUPROPION SR 150 MG TABLET PO SCH ×4 (08:03→20:38)
[2021-05-07] MEDS: LISINOPRIL 20 MG TABLET PO SCH (08:04)
[2021-05-07 13:56] VITALS: BP 120/76
[2021-05-07] MEDS: LIDODERM 5% PATCH TD PRN (16:06)
[2021-05-07 20:33] VITALS: BP 120/71
[2021-05-08 00:18] VITALS: BP 116/66
[2021-05-08] MEDS: ZOLPIDEM 10MG TABLET PO PRN (00:54)
[2021-05-08] MEDS: ALPRazolam 1MG TAB PO PRN (00:54)
[2021-05-08] MEDS: OXYcodone IR 5MG TABLET PO PRN ×6 (02:41→21:54)
[2021-05-08] MEDS: DEXAMETHASONE 4 MG/ML, 1ML PO SCH ×4 (02:41→20:48)
[2021-05-08] MEDS: morphine SULFATE 10 MG/ML, 1ML IVPush PRN ×4 (06:20→20:35)
[2021-05-08] MEDS: AMLODIPINE 10 MG TAB PO SCH (08:13)
[2021-05-08] MEDS: BUPROPION SR 150 MG TABLET PO SCH (08:13)
[2021-05-08] MEDS: LISINOPRIL 20 MG TABLET PO SCH (08:14)
[2021-05-08 08:16] VITALS: BP 109/51
[2021-05-08] MEDS ORDERED: PERMETHRIN CRM 5%, 60GM TP SCH (11:30)
[2021-05-08 12:53] VITALS: BP 117/70
[2021-05-08] MEDS ORDERED: OXYcodone 5 MG/5 ML ORAL.SOL UDC ONE (15:04)
[2021-05-08] MEDS: METHOCARBAMOL 750 MG TABLET PO SCH ×2 (16:35→20:48)
[2021-05-08] MEDS: DIPHENHYDRAMINE 25 MG CAPSULE PO PRN (18:28)
[2021-05-08 18:52] VITALS: BP 123/75
[2021-05-08] MEDS: SENNA/DOCUSATE TABLET PO SCH (20:48)
[2021-05-08] MEDS ORDERED: MELATONIN 5 MG TABLET PO SCH (21:00)
[2021-05-09 00:01] VITALS: BP 122/71
[2021-05-09] MEDS: ALPRazolam 1MG TAB PO PRN ×2 (01:25→11:55)
[2021-05-09] MEDS: ZOLPIDEM 10MG TABLET PO PRN (01:25)
[2021-05-09] MEDS: morphine SULFATE 10 MG/ML, 1ML IVPush PRN ×3 (02:59→15:21)
[2021-05-09] MEDS: DEXAMETHASONE 4 MG/ML, 1ML PO SCH ×3 (03:04→15:22)
[2021-05-09] MEDS: OXYcodone IR 5MG TABLET PO PRN ×4 (05:03→16:38)
[2021-05-09 06:45] VITALS: BP 116/67
[2021-05-09] MEDS: BUPROPION SR 150 MG TABLET PO SCH (08:23)
[2021-05-09] MEDS: SENNA/DOCUSATE TABLET PO SCH (08:24)
[2021-05-09] MEDS: METHOCARBAMOL 750 MG TABLET PO SCH ×2 (08:25→16:38)
[2021-05-09] MEDS: LISINOPRIL 20 MG TABLET PO SCH (08:25)
[2021-05-09] MEDS: AMLODIPINE 10 MG TAB PO SCH (08:25)
[2021-05-09 08:59] LABS: BASOPHILS % (AUTO) 0 % (0-1); EOSINOPHILS % (AUTO) 0 % (1-7); LYMPHOCYTES % (AUTO) 5 % (22-44); MEAN CORPUSCULAR HEMOGLOBIN 31.4 pg (27.5-34.5); MEAN PLATELET VOLUME 9.3 fL (7.4-10.4); MONOCYTES % (AUTO) 4 % (2-9); NEUTROPHILS % (AUTO) 91 % (42-75); PLATELET COUNT 266 x10^3/uL (130-400); RED BLOOD COUNT 4.36 x10^6/uL (4.38-5.82)
[2021-05-09 09:12] LABS: ANION GAP 8 mmol/L (5-15); CALCIUM 8.6 mg/dL (8.5-10.1); CHLORIDE 107 mmol/L (98-107)
[2021-05-09 09:13] LABS: CREATININE 0.98 mg/dL (0.7-1.3)
[2021-05-09] MEDS ORDERED: SENN-211 PO (10:58)
[2021-05-09] MEDS ORDERED: MELA5TAB14 PO (10:58)
[2021-05-09] MEDS ORDERED: ONDA4TAB7 PO (10:58)
[2021-05-09] MEDS ORDERED: METH-640 PO (10:58)
[2021-05-09] MEDS ORDERED: BUPROPION SR 150 MG TABLET PO SCH (12:00)
[2021-05-09] MEDS ORDERED: OXYC15TA3 PO (12:22)
[2021-05-09 13:24] VITALS: BP 127/83
== END 2021-05-09 17:41 | disposition home or self-care (01) | DRG 347 ==
LOC: ED 21:42 → EDIP 22:18 → 3N 22:19
PROVIDERS: ADMIT Internal Medicine; ATTEND Internal Medicine
PROC: B03BZZZ Magnetic Resonance Imaging (MRI) of Spinal Cord (ICD-10-PCS; principal; 2021-05-06 12:30)
DX: M54.16 Radiculopathy, lumbar region (principal); F13.20 Sedative, hypnotic or anxiolytic dependence, uncomplicated; K59.2 Neurogenic bowel, not elsewhere classified; E66.9 Obesity, unspecified; Z68.32 Body mass index [BMI] 32.0-32.9, adult; F33.1 Major depressive disorder, recurrent, moderate; F40.240 Claustrophobia; F41.1 Generalized anxiety disorder; F43.10 Post-traumatic stress disorder, unspecified; G89.29 Other chronic pain; I10 Essential (primary) hypertension; R15.9 Full incontinence of feces; N31.9 Neuromuscular dysfunction of bladder, unspecified; Z80.0 Family history of malignant neoplasm of digestive organs; Z90.49 Acquired absence of other specified parts of digestive tract; Z88.0 Allergy status to penicillin; Z83.6 Family history of other diseases of the respiratory system
CPT/HCPCS: 36415; 70450; 72156; 72157; 72158; 80048; 83735; 84100; 85025; 85651; 86140; 96374; 96375; G0378; J1100; J1170; J2250; J2405; J2704; J3010; A9575; J2270; Q0163